=== PATIENT | male | born 1960 | race Caucasian/White ===

== ENCOUNTER 2017-09-08 08:33 | Emergency (ER) | payer SELFPAY ==
[2017-09-08 09:59] LABS: Absolute Lymphocytes (CBC) 1.6 K/uL (0.7-4.9); Absolute Monocytes 0.8 K/uL (0.1-1.3); Absolute Neutrophil 4.7 K/uL (1.8-8.0); Basophils % 0.9 % (0-1.3); Eosinophils % 2.5 % (0-4.4); Hematocrit 44.9 % (39.6-49.0); Lymphocytes % 22.1 % (15.3-44.8); MCH 28.4 pg (27.0-35.0); MCV 84.5 fL (80-100); MPV 8.6 fL (7.6-11.3); Monocytes % 10.4 % (3.3-12.3); RBC Red Blood Cell Count 5.31 M/uL (4.33-5.43)
[2017-09-08 10:00] LABS: Protime INR 1.03
--- NOTE | 2017-09-08 10:14 | RAD REPORT ---
EXAM DESCRIPTION: [facility]09/08/2017 9:50 am CLINICAL HISTORY: Right leg pain and swelling. COMPARISON: 2016 FINDINGS: Right common femoral, superficial femoral, popliteal and right posterior tibial veins are compressible and demonstrate augmentation. Doppler demonstrates good flow. IMPRESSION: No evidence of deep venous thrombosis involving the right lower extremity.
[2017-09-08 10:17] LABS: Potassium 3.5 mmol/L (3.5-5.1)
--- NOTE | 2017-09-08 10:42 | ER ---
Nurse's Notes [facility] Name: Kevin Melgoza Age: 56 yrs Sex: Male : 1960 Arrival Date: 09/08/2017 Time: 08:35 Bed 13 Private MD: None, None Diagnosis: Cellulitis of right lower limb Presentation: 09/08 08:49 Presenting complaint: Patient states: redness and swelling to right lower leg x 2 days aa5 ago. Pt denies SOB, denies leg pain, reports only tenderness to touch. Transition of care: patient was not received from another setting of care. Onset of symptoms was August 2017. Risk Assessment: Do you want to hurt yourself or someone else? Patient reports no desire to harm self or others. Initial Sepsis Screen: Does the patient meet any 2 criteria? No. Patient's initial sepsis screen is negative. Does the patient have a suspected source of infection? No. Patient's initial sepsis screen is negative. Care prior to arrival: None. 08:49 Method Of Arrival: Ambulatory aa5 08:49 Acuity: ALYSON 3 aa5 Historical: - Allergies: 08:51 PENICILLINS; aa5 - Home Meds: 08:51 None [Active]; aa5 - PMHx: 08:51 None; aa5 - PSHx: 08:51 Thumb Surgery; Hernia repair; right leg; aa5 - Immunization history:: Adult Immunizations unknown. - Social history:: Smoking status: Patient uses tobacco products, smokes one-half pack cigarettes per day. - Ebola Screening: : No symptoms or risks identified at this time. Screenin:20 Abuse screen: Denies threats or abuse. Nutritional screening: No deficits noted. aa5 Tuberculosis screening: No symptoms or risk factors identified. Fall Risk None identified. Assessment: 09:20 General: Appears comfortable, Behavior is calm, cooperative. Pain: Denies pain. Neuro: aa5 Level of Consciousness is awake, alert, obeys commands, Oriented to person, place, time, situation. Cardiovascular: Heart tones S1 S2 present Pulses are 3+ in right dorsalis pedis artery Rhythm is regular. Respiratory: Airway is patent Respiratory effort is even, unlabored, Respiratory pattern is regular, symmetrical, Breath sounds are clear bilaterally. Denies shortness of breath. GI: No signs and/or symptoms were reported involving the gastrointestinal system. : No signs and/or symptoms were reported regarding the genitourinary system. EENT: No signs and/or symptoms were reported regarding the EENT system. Derm: Skin is pink, warm \T\ dry. Musculoskeletal: Range of motion: intact in all extremities, Swelling and redness noted to right lower leg. Vital Signs: 08:51 BP 142 / 85; Pulse 76; Resp 16 S; Temp 98.4(TE); Pulse Ox 98% on R/A; Weight 117.93 kg aa5 (R); Height 5 ft. 11 in. (180.34 cm) (R); Pain 0/10; 10:14 BP 140 / 72; Pulse 65; Resp 18; Pulse Ox 100% on R/A; hj 08:51 Body Mass Index 36.26 (117.93 kg, 180.34 cm) aa5 ED Course: 08:35 Patient arrived in ED. sb2 08:36 None, None is Private Physician. sb2 08:50 Triage completed. aa5 08:50 Arm band placed on. aa5 09:13 Cynthia Rendon RN is Primary Nurse. aa5 09:19 Mikey Coleman PA is PHCP. jr8 09:19 Estuardo Sanchez MD is Attending Physician. jr8 09:20 Patient has correct armband on for positive identification. Placed in gown. Bed in low aa5 position. Call light in reach. Side rails up X2. Pulse ox on. NIBP on. 09:30 Patient taken to ultrasound. via wheelchair. aa4 09:38 Missed attempt(s): 20 gauge in right wrist. Bleeding controlled, band aid applied, aa5 catheter tip intact. 09:40 Initial lab(s) drawn, by [facility], sent to lab. Inserted saline lock: 20 gauge in right aa5 forearm, using aseptic technique. Blood collected. 09:50 Ultrasound completed. Patient tolerated well. Patient moved back from ultrasound. aa4 09:50 Extremity Venous Unilateral Ltd In Process Unspecified. EDMS 10:00 Report given to JIMBO Luther. aa5 10:02 No provider procedures requiring assistance completed. aa5 11:16 IV discontinued, intact, bleeding controlled, No redness/swelling at site. hj Administered Medications: No medications were administered Outcome: 10:42 Discharge ordered by . jr8 11:15 Discharged to home ambulatory. hj 11:15 Condition: stable 11:15 Discharge instructions given to patient, Instructed on discharge instructions, follow up and referral plans. medication usage, Demonstrated understanding of instructions, follow-up care, medications, Prescriptions given X 2. 11:16 Patient left the ED. Signatures: Dispatcher [employer] EDMS Jazzy Mclain aa4 Cynthia Rendon RN RN aa5 Mikey Coleman PA PA jr8 Ashkan Borden RN RN Lynn Nava sb2
--- NOTE | 2017-09-08 10:43 | EDPHYS ---
Physician Documentation [facility] Name: Kevin Melgoza Age: 56 yrs Sex: Male : 1960 Arrival Date: 09/08/2017 Time: 08:35 Bed 13 Private MD: None, None ED Physician Estuardo Sanchez HPI: 09/08 09:38 This 56 yrs old Male presents to ER via Ambulatory with complaints of Leg jr8 Swelling. 09:38 The patient presents with pain, swelling, tenderness. The complaints affect the right jr8 calf. Onset: The symptoms/episode began/occurred gradually, 2 day(s) ago. Modifying factors: The symptoms are alleviated by nothing. the symptoms are aggravated by movement. Associated signs and symptoms: The patient has no apparent associated signs or symptoms. Severity of symptoms: At their worst the symptoms were mild, in the emergency department the symptoms are unchanged. The patient has not experienced similar symptoms in the past. The patient has not recently seen a physician. Patient stated that he has had subtle swelling and redness to right leg. Mild pain with palpation. Denies trauma to leg . Historical: - Allergies: 08:51 PENICILLINS; aa5 - Home Meds: 08:51 None [Active]; aa5 - PMHx: 08:51 None; aa5 - PSHx: 08:51 Thumb Surgery; Hernia repair; right leg; aa5 - Immunization history:: Adult Immunizations unknown. - Social history:: Smoking status: Patient uses tobacco products, smokes one-half pack cigarettes per day. - Ebola Screening: : No symptoms or risks identified at this time. ROS: 09:38 Eyes: Negative for injury, pain, redness, and discharge, ENT: Negative for injury, jr8 pain, and discharge, Neck: Negative for injury, pain, and swelling, Cardiovascular: Negative for chest pain, palpitations, and edema, Respiratory: Negative for shortness of breath, cough, wheezing, and pleuritic chest pain, Abdomen/GI: Negative for abdominal pain, nausea, vomiting, diarrhea, and constipation, Back: Negative for injury and pain, Skin: Negative for injury, rash, and discoloration, Neuro: Negative for headache, weakness, numbness, tingling, and seizure. 09:38 MS/extremity: Positive for erythema, pain, swelling, tenderness, of the right calf. Exam: 09:38 Cardiovascular: Regular rate and rhythm with a normal S1 and S2. No gallops, murmurs, jr8 or rubs. Normal PMI, no JVD. No pulse deficits. Respiratory: Lungs have equal breath sounds bilaterally, clear to auscultation and percussion. No rales, rhonchi or wheezes noted. No increased work of breathing, no retractions or nasal flaring. Skin: Warm, dry with normal turgor. Normal color with no rashes, no lesions, and no evidence of cellulitis. Neuro: Awake and alert, GCS 15, oriented to person, place, time, and situation. Cranial nerves II-XII grossly intact. Motor strength 5/5 in all extremities. Sensory grossly intact. Cerebellar exam normal. Normal gait. 09:38 Musculoskeletal/extremity: Extremities: grossly normal except: noted in the right calf: erythema, pain, swelling, tenderness, ROM: intact in all extremities, Circulation is intact in all extremities. Sensation intact. DVT Exam: pain, of the right leg, swelling, of the right leg, tenderness, of the right leg, erythema, of the right leg, Calves: are not equal in size: right is larger than left. Vital Signs: 08:51 BP 142 / 85; Pulse 76; Resp 16 S; Temp 98.4(TE); Pulse Ox 98% on R/A; Weight 117.93 kg aa5 (R); Height 5 ft. 11 in. (180.34 cm) (R); Pain 0/10; 10:14 BP 140 / 72; Pulse 65; Resp 18; Pulse Ox 100% on R/A; hj 08:51 Body Mass Index 36.26 (117.93 kg, 180.34 cm) aa5 MDM: 09:19 Patient medically screened. jr8 10:41 Data reviewed: vital signs, nurses notes, lab test result(s), radiologic studies, jr8 ultrasound, and as a result, I will discharge patient. Data interpreted: Pulse oximetry: on room air is 100 %. Interpretation: normal. Counseling: I had a detailed discussion with the patient and/or guardian regarding: the historical points, exam findings, and any diagnostic results supporting the discharge/admit diagnosis, lab results, radiology results, the need for outpatient follow up, a family practitioner, to return to the emergency department if symptoms worsen or persist or if there are any questions or concerns that arise at home. ED course: Discussed with patient that this is most likely a cellulitis. Will start on antibiotics. Return precautions given. 09/08 09:24 Order name: CBC with Diff; Complete Time: 10:15 8 09/08 09:24 Order name: PT-INR; Complete Time: 10:15 8 09/08 09:24 Order name: Basic Metabolic Panel; Complete Time: 10:25 8 09/08 09:24 Order name: US Extremity Venous Unilateral Ltd; Complete Time: 10:15 09/08 09:24 Order name: IV; Complete Time: 09:52 8 Administered Medications: No medications were administered Disposition: 15:23 Co-signature as Attending Physician, Estuardo Sanchez MD I agree with the assessment and kdr plan of care. Disposition: 09/08/17 10:42 Discharged to Home. Impression: Cellulitis of right lower limb. - Condition is Stable. - Discharge Instructions: Cellulitis. - Prescriptions for Clindamycin HCl 300 mg Oral Capsule - take 1 capsule by ORAL route every 6 hours for 10 days; 40 capsule. Bactrim DS 800- 160 mg Oral Tablet - take 1 tablet by ORAL route every 12 hours for 10 days; 20 tablet. - Medication Reconciliation Form, Thank You Letter, Antibiotic Education, Prescription Opioid Use form. - Follow up: Private Physician; When: 2 - 3 days; Reason: Recheck today's complaints, Continuance of care, Re-evaluation by your physician. - Problem is new. - Symptoms have improved. Signatures: Dispatcher [employer] EDMS Estuardo Sanchez MD MD [facility] Cynthia Rendon RN RN aa5 Mikey Coleman PA PA jr8 Ashkan Borden RN RN hj Corrections: (The following items were deleted from the chart) 11:16 10:42 09/08/2017 10:42 Discharged to Home. Impression: Cellulitis of right lower limb. hj Condition is Stable. Forms are Medication Reconciliation Form, Thank You Letter, Antibiotic Education, Prescription Opioid Use. Follow up: Private Physician; When: 2 - 3 days; Reason: Recheck today's complaints, Continuance of care, Re-evaluation by your physician. Problem is new. Symptoms have improved. jr8
[2017-09-08] MEDS ORDERED: MORPHINE 4 MG/ML SYR ONE (11:11)
== END 2017-09-08 11:16 | disposition home or self-care (01) ==
LOC: ER 08:33
DX: L03.115 Cellulitis of right lower limb (principal); F17.210 Nicotine dependence, cigarettes, uncomplicated; Z88.0 Allergy status to penicillin
CPT/HCPCS: 36415; 80048; 85025; 85610; 93971; 99284

== ENCOUNTER 2024-11-15 11:03 | Emergency (ER) | payer OTHER ==
--- OUTSIDE RECORDS SUMMARY | 2024-11-15 11:10 | XMS REPORT | Continuity of Care Document ---
Author Name Unknown Address [address] [facility] [address] [place] [address] [facility] Address [address] [facility] [address] [place] [address] Care Team Providers Care Inspector [employer] Wafer Name Role Phone None, None Primary Care Physician Unavailab Garry Porter MD Attending Clinician [phone] GARRY CAGLE Attending Clinician Unavailable SHANKAR PASTOR Attending Clinician Unavailable Doctor Unassigned, [place] Attending Clinician U Garry Espinoza MD Attending Clinician [phone] Nurse, [facility] Gu Attending Clinician Unadenita Rodriguez, [facility] Main Attending Clinician UnavailShankar Russell Attending Clinician [phone] JULIA VAZQUEZ Attending Clinician Unavailable Julia Vazquez MD Attending Clinician [phone] Lab, Ang - Db Attending Clinician Unavailable OCTAVIA BAHENA Attending Clinician UnavailOctavia Zhou Attending Clinician [phone] MAISHA MCGREGOR Attending Clinician Unavail able Maisha Andrade Attending Clinician + [phone] CHARLENE BOBBY Attending Clinician Unavailable Charlene Bobby MD Attending Clinician [phone] Brant Mckenzie MD Attending Clinician [phone] Samantha Emmanuel Attending Clinician [phone] Luanne Saucedo DO Attending Clinician DR KURTIS VERGARA Attending Clinician Unavailable GARRY CAGLE Admitting Clinician Unavailable Garry Cagle MD Admitting Clinician [phone] DR KURTIS VERGARA Admitting Clinician Unavailable Payers Payer Name Policy Type Policy Number Effective Date Expirati on Date Source Adriel MARSDOYR [facility] [id number] 1 2022 00:00:00 Problems Condition Name Condition Details Condition Category Status Onset Date Resolution Date Last Treatment Date Treating Clinician Comments Source Urine retention Urine retention Disease Active 0 07-31 00:00: 00 [facility] Indwelling Cook catheter present Indwelling Cook catheter present Disease Active 07-31 00:00: 00 [facility] Preop cardiovasc ular exam Preop cardiovasc ular exam Disease Active 07-20 00:00: 00 [facility] Obesity (BMI 30-39.9) Obesity (BMI 30-39.9) Disease Active 0 07-20 00:00: 00 [facility] Pre-operat brendon clearance Pre-operat brendon clearance Disease Active 0 07-18 00:00: 00 [facility] Urinary tract infection without hematuria, site unspecifie d Urinary tract infection without hematuria, site unspecifie d Disease Active 07-18 00:00: 00 [facility] Wheezing Wheezing Disease Active 06-25 00:00: 00 [facility] Elevated PSA Elevated PSA Disease Active 0 06-25 00:00: 00 [facility] Encounter to discuss test results Encounter to discuss test results Disease Active 0 06-25 00:00: 00 [facility] Mild hyperchole sterolemia Mild hyperchole sterolemia Disease Active 06-25 00:00: 00 [facility] Encounter to discuss test results Encounter to discuss test results Disease Active 0 06-25 00:00: 00 [facility] Benign prostatic hyperplasi a with urinary retention Benign prostatic hyperplasi a with urinary retention Disease Active 417 00:00: 00 [facility] Encounter to establish care Encounter to establish care Disease Active 417 00:00: 00 [facility] Primary osteoarthr itis of right knee Primary osteoarthr itis of right knee Disease Active 417 00:00: 00 [facility] Elevated blood pressure reading in office without diagnosis of hypertensi on Elevated blood pressure reading in office without diagnosis of hypertensi on Disease Active 417 00:00: 00 [facility] Encounter to establish care Encounter to establish care Disease Active 17 00:00: 00 [facility] Acute urinary retention Acute urinary retention Disease Active 4 00:00: 00 [facility] No known active problems No known active problems Disease [facility] Allergies, Adverse Reactions, Alerts Allergy Name Allergy Type Status Severity Reaction(s) Onset Date Inactive Date Treating Clinician Comments Source CEPHALEX IN DRUG INGREDI Active Hives 4-29 00:00: 00 [facility] Cephalex in Drug Allergy Active Hives 0 429 00:00: 00 [facility] Penicill ins Allergy to substanc e Active 3-06 00:00: 00 [facility] Penicill ins Propensi ty to adverse reaction s Active Hives 0 8-30 00:00: 00 [facility] PENICILL INS Drug Class Active Hives 0 8-30 00:00: 00 [facility] Penicill ins Propensi ty to adverse reaction s Active Hives 0 8-30 00:00: 00 [facility] NO KNOWN ALLERGIE S Drug Class Active [facility] Penicill ins DA Active Unknown [facility] Social History Social Habit Start Date Stop Date Quantity Comments Source History of tobacco use Cigarette Smoker [facility] Alcoholic beverage intake 2024-01-10 00:00:00 2024-01-10 00:00:00 Ex-drinker (finding) [facility] Tobacco use and exposure 2023-08-23 00:00:00 2023-08-23 00:00:00 User of smokeless tobacco [facility] Alcohol intake 2023-06-30 00:00:00 2023-06-30 00:00:00 Ex-drinker (finding) [facility] History of Social function 2023-05-31 00:00:00 2023-05-31 00:00:00 [facility] Exposure to SARS-CoV-2 (event) 2022-07-19 00:00:00 2022-07-29 08:13:00 Not sure [facility] Sex Assigned At 1960 00:00:00 1960 00:00:00 [facility] Smoking Status Start Date Stop Date Source Ex-smoker 2023-08-23 00:00:00 2023-08-23 00:00:00 [facility] Tobacco smoking consumption unknown [facility] Medications Ordered Medication Name Filled Medication Name Start Date Stop Date Current Medication? Ordering Clinician Indication Dosage Frequency Signature (SIG) Comments Components Source Nitrofurant oin&Nit. Macrocryst (MACROBID) 100 mg capsule 2023-02 00:00: 00 01-20 05:59 :00 No [id number] 100mg Take 1 capsule by mouth in the morning and 1 capsule in the evening. Do all this for 7 days. [facility] levoFLOXaci n 500 mg tablet 2023-02 00:00: 00 01-17 05:59 :00 No [id number] 500mg Take 1 tablet by mouth every 24 (twenty-fo ur) hours for 7 days. [facility] gentamicin injection 160 mg 09-17 20:45: 00 09-17 20:42 :00 No [id number] 160mg 160 mg, Intramuscu lar, ONCE, 1 dose, On Mon09/18/23 at 1545, AILIN, Reason for Anti-Infec tive: Surgical Prophylaxi s, Surgical Prophylaxi s: Genitourin katy, Duration of therapy: within 24 hours of surgery [facility] ondansetron (ZOFRAN (PF)) injection 4 mg 09-13 20:02: 09 09-14 04:05 :51 No 4mg 4 mg, Slow IV Push, Q4HPRN, 1 dose, Starting on Crystal 09/14/23 at 1502, Until Crystal 09/14/23 at 2305, Routine, Nausea and Vomiting (N/V), DSU Recovery [facility] lactated ringers IV infusion 1,000 mL 09-13 19:15: 00 09-14 04:05 :52 No 1000mL at 75 mL/hr, 1,000 mL, IV Infusion, CONTINUOUS , Starting on Crystal 09/14/23 at 1415, Until Crystal 09/14/23 at 2305, Routine, PACU [facility] HYDROcodone -acetaminop hen (NORCO 5) 5-325 mg tablet 1 tablet 09-13 19:15: 00 09-13 19:54 :00 No 1{tbl} 1 tablet, Oral, ONCE, 1 dose, On Crystal 09/14/23 at 1415, Routine, PACU [facility] HYDROmorphO ne (DILAUDID) injection 0.2 mg 09-13 19:07: 24 09-14 04:05 :51 No .2mg 0.2 mg, Slow IV Push, Q5MIN PRN, 10 doses, Starting on Crystal 09/14/23 at 1407, Until Crystal 09/14/23 at 2305, Routine, Pain (scale 7-10), PACU, Is this medication approved by a Faculty level provider? Yes, administrative appeals tribunal member approving Restricted medication : LANG PENA [facility] FENTanyl PF (SUBLIMAZE (PF)) injection 25 mcg 09-13 19:07: 24 09-14 04:05 :51 No 25ug 25 mcg, Slow IV Push, Q5MIN PRN, 4 doses, Starting on Crystal 09/14/23 at 1407, Until Crystal 09/14/23 at 2305, Routine, Pain (scale 4-6), PACU [facility] meperidine (DEMEROL) injection 12.5 mg 09-13 19:07: 24 09-14 04:05 :51 No 12.5mg 12.5 mg, Slow IV Push, PRN, 1 dose, Starting on Crystal 09/14/23 at 1407, Until Crystal 09/14/23 at 2305, Routine, Shivering, PACU, Enter indication for use: Reduce postoperat brendon shivering, administrative appeals tribunal member approving Restricted medication : PACU RECOVERY [facility] proMETHazin e (PHENERGAN) 12.5 mg in NS 50 mL IV piggyback (CNR) 09-13 19:07: 24 09-14 04:05 :51 No 12.5mg 12.5 mg, IV Piggyback, at 200 mL/hr Administer over 15 Minutes, PRN, 1 dose, Starting on Crystal 09/14/23 at 1407, Until Crystal 09/14/23 at 2305, Routine, Nausea and Vomiting (N/V), PACU [facility] sodium chloride 0.9 % irrigation solution 09-13 15:47: 00 09-13 19:45 :02 No PRN, Starting on Crystal 09/14/23 at 1047, Until Crystal 09/14/23 at 1445, Intra-op [facility] lidocaine (XYLOCAINE) 2 % jelly URO-JET 09-13 15:47: 00 09-13 19:45 :02 No PRN, Starting on Crystal 09/14/23 at 1047, Until Crystal 09/14/23 at 1445, Routine, Intra-op [facility] lactated ringers IV infusion 1,000 mL 09-13 13:00: 00 09-13 13:29 :00 No 1000mL at 42 mL/hr, 1,000 mL, IV Infusion, ONCE, 1 dose, On Crystal 09/14/23 at 0800, Routine, DSU Pre-op [facility] sulfamethox azole-trime thoprim (BACTRIM DS) 800-160 mg per tablet 09-13 00:00: 00 09-21 04:59 :00 No [id number] 1{tbl} Take 1 tablet by mouth in the morning and 1 tablet in the evening. Do all this for 7 days. [facility] clindamycin 300 mg capsule 10 00:00: 00 09-11 04:59 :00 No [id number] 300mg Take 1 capsule by mouth in the morning and 1 capsule at noon and 1 capsule in the evening. Do all this for 5 days. [facility] gadobenate dimeglumine (MULTIHANCE -20 mL) injection 22.78 mL 07-24 18:45: 00 07-24 18:25 :00 No [id number] .2mL/kg 22.78 mL (0.2 mL/kg ?113.9 kg), Intravenou s, ONCE, 1 dose, On Mon07/25/23 at 1345, Routine [facility] tamsulosin 0.4 mg 24 hr capsule 07-24 00:00: 00 Yes [id number] .4mg TAKE 1 CAPSULE BY MOUTH EVERY MORNING [facility] sulfamethox azole-trime thoprim (BACTRIM DS) 800-160 mg per tablet 07-18 00:00: 00 09-13 00:00 :00 No [id number] 1{tbl} Take 1 tablet by mouth in the morning and 1 tablet in the evening. [facility] ondansetron (ZOFRAN) 4 mg tablet 07-18 00:00: 00 07-29 04:59 :00 No [id number] 4mg Take 1 tablet by mouth every 8 (eight) hours as needed for Nausea and Vomiting (N/V) for up to 10 days. [facility] gentamicin injection 160 mg 07-17 20:30: 00 07-18 08:29 :00 [facility] [id number] [facility] mg 07-17 19:45: 00 07-17 19:51 :00 No [id number] 160mg 160 mg, Intramuscu lar, Q24H ABX, 1 dose, First dose on Mon07/18/23 at 1500, AILIN, Reason for Anti-Infec tive: Documented Infection, Documented Infection Site: Urine, Duration of Therapy: Once (ED) [facility] sulfamethox azole-trime thoprim (BACTRIM DS) 800-160 mg per tablet 07-17 00:00: 00 07-18 00:00 :00 No [id number] 1{tbl} Take 1 tablet by mouth in the morning and 1 tablet in the evening. Do all this for 7 days. [facility] gentamicin injection 160 mg 07-03 14:30: 00 07-03 14:12 :00 No [id number] 160mg 160 mg, Intramuscu lar, ONCE, 1 dose, On Mon07/04/23 at 0930, AILIN, Reason for Anti-Infec tive: Surgical Prophylaxi s, Surgical Prophylaxi s: Genitourin katy, Duration of therapy: within 24 hours of surgery [facility] albuterol 90 mcg/actuati on inhaler 06-25 00:00: 00 09-18 00:00 :00 No [id number] 2{puff} Inhale 2 Puffs every 6 (six) hours as needed for Wheezing or Shortness of Breath. [facility] ciprofloxac in HCl 500 mg tablet -27 00:00: 00 06-29 04:59 :00 No [id number] 500mg Take 1 tablet by mouth every 12 (twelve) hours for 5 days. [facility] tamsulosin (FLOMAX) 0.4 mg 24 hr capsule 06-21 00:00: 00 07-24 00:00 :00 No [id number] .4mg Take 1 capsule by mouth in the morning. [facility] tamsulosin (FLOMAX) capsule 0.4 mg 05-26 14:00: 00 Yes .4mg 0.4 mg, Oral, DAILY, First dose on Mon05/27/23 at 0900, Until Discontinu ed, Routine [facility] tamsulosin (FLOMAX) 0.4 mg 24 hr capsule 05-26 00:00: 00 06-21 00:00 :00 No [id number] .4mg Take 1 capsule by mouth in the morning. [facility] meloxicam (Mobic) 15 MG tablet 07-29 00:00: 00 07-29 04:59 :00 No [id number] 15mg QD Take 1 tablet (15 mg total) by mouth 1 (one) time each day. [facility] lidocaine (Xylocaine) 1 % injection 1 mL 05-31 19:00: 00 05-31 19:00 :00 No [id number] 1mL [facility] betamethaso ne acetate-bet amethasone sodium phosphate (Celestone) injection 30 mg 05-31 19:00: 00 05-31 19:00 :00 No [id number] 30mg [facility] albuterol 90 mcg/actuati on inhaler 10-26 00:00: 00 Yes [id number] 2{puff} Inhale 2 Puffs every 4 (four) hours as needed for Wheezing or Shortness of Breath. [facility] bromphenira mine-pseudo ephedrine-D M (BROMFED DM) 2-30-10 mg/5 mL syrup 10-26 00:00: 00 09-18 00:00 :00 No [id number] 5mL Take 5 mL by mouth 4 (four) times daily as needed for Congestion /Allergies . [facility] benzonatate 100 mg capsule 10-26 00:00: 00 09-18 00:00 :00 No [id number] 100mg Take 1 capsule by mouth 3 (three) times daily as needed for Cough. [facility] cephALEXin (KEFLEX) 500 mg capsule 05-22 00:00: 00 Yes 500mg Take 1 capsule by mouth 3 (three) times daily. [facility] acetaminoph en-codeine 300-30 mg tablet 05-22 00:00: 00 09-18 00:00 :00 No 1{tbl} Take 1 tablet by mouth every 4 (four) hours as needed for Pain (scale 4-6) (Cough). [facility] Vital Signs Vital Name Observation Time Observation Value Comments Audra pereira Systolic blood pressure 2024-02-07 20:34:00 132 mm[Hg] [facility] Diastolic blood pressure 2024-02-07 20:34:00 81 mm[Hg] [facility] Heart rate 2024-02-07 20:34:00 71 /min [facility] Body temperature 2024-02-07 20:34:00 36.33 Stacie [facility] Body height 2024-02-07 20:34:00 180.3 cm [facility] Body weight 2024-02-07 20:34:00 112.81 kg [facility] BMI 2024-02-07 20:34:00 34.69 kg/m2 [facility] Oxygen saturation in Arterial blood by Pulse oximetry 2024-02-07 20:34:00 97 /min [facility] Systolic blood pressure 2024-01-10 21:27:00 131 mm[Hg] [facility] Diastolic blood pressure 2024-01-10 21:27:00 89 mm[Hg] [facility] Heart rate 2024-01-10 21:27:00 77 /min [facility] Body temperature 2024-01-10 21:24:00 36.17 Stacie [facility] Respiratory rate 2024-01-10 21:24:00 20 /min [facility] Body weight 2024-01-10 21:24:00 110.678 kg [facility] BMI 2024-01-10 21:24:00 34.03 kg/m2 [facility] Oxygen saturation in Arterial blood by Pulse oximetry 2024-01-10 21:24:00 95 /min [facility] Systolic blood pressure 2023-10-24 18:46:00 146 mm[Hg] [facility] Diastolic blood pressure 2023-10-24 18:46:00 86 mm[Hg] [facility] Heart rate 2023-10-24 18:46:00 82 /min [facility] Body temperature 2023-10-24 18:46:00 35.89 Stacie [facility] Respiratory rate 2023-10-24 18:46:00 18 /min [facility] Body weight 2023-10-24 18:46:00 113.218 kg [facility] BMI 2023-10-24 18:46:00 34.81 kg/m2 [facility] Oxygen saturation in Arterial blood by Pulse oximetry 2023-10-24 18:46:00 96 /min [facility] Systolic blood pressure 2023-09-19 12:53:00 132 mm[Hg] [facility] Diastolic blood pressure 2023-09-19 12:53:00 82 mm[Hg] [facility] Heart rate 2023-09-19 12:53:00 91 /min [facility] Body temperature 2023-09-19 12:53:00 36.39 Stacie [facility] Respiratory rate 2023-09-19 12:53:00 20 /min [facility] Body height 2023-09-19 12:53:00 180.3 cm [facility] Body weight 2023-09-19 12:53:00 111.131 kg [facility] BMI 2023-09-19 12:53:00 34.17 kg/m2 [facility] Oxygen saturation in Arterial blood by Pulse oximetry 2023-09-19 12:53:00 96 /min [facility] Systolic blood pressure 2023-09-18 20:37:00 130 mm[Hg] [facility] Diastolic blood pressure 2023-09-18 20:37:00 80 mm[Hg] [facility] Heart rate 2023-09-18 20:37:00 84 /min [facility] Body temperature 2023-09-18 20:37:00 36.39 Stacie [facility] Respiratory rate 2023-09-18 20:37:00 20 /min [facility] Oxygen saturation in Arterial blood by Pulse oximetry 2023-09-18 20:37:00 98 /min [facility] Body height 2023-09-18 20:06:00 180.3 cm [facility] 2023-09-18 20:06:00 123.56 kg [facility] BMI 2023-09-18 20:06:00 37.99 kg/m2 [facility] Body weight 2023-09-18 14:35:00 123.56 kg [facility] BMI 2023-09-18 14:35:00 37.99 kg/m2 [facility] Systolic blood pressure 2023-09-14 22:10:00 128 mm[Hg] [facility] Diastolic blood pressure 2023-09-14 22:10:00 77 mm[Hg] [facility] Heart rate 2023-09-14 22:10:00 79 /min [facility] Respiratory rate 2023-09-14 22:10:00 20 /min [facility] Oxygen saturation in Arterial blood by Pulse oximetry 2023-09-14 22:10:00 96 /min [facility] Body temperature 2023-09-14 19:07:00 36.89 Stacie [facility] Body weight 2023-08-23 22:00:00 117.935 kg [facility] BMI 2023-08-23 22:00:00 36.26 kg/m2 [facility] Heart rate 2023-09-14 13:12:00 74 /min [facility] Body temperature 2023-09-14 13:12:00 36.78 Stacie [facility] Respiratory rate 2023-09-14 13:12:00 21 /min [facility] Oxygen saturation in Arterial blood by Pulse oximetry 2023-09-14 13:12:00 94 /min [facility] Body weight 2023-08-23 22:00:00 117.935 kg [facility] BMI 2023-08-23 22:00:00 36.26 kg/m2 [facility] Body weight 2023-08-04 15:45:00 113.762 kg [facility] BMI 2023-08-04 15:45:00 34.98 kg/m2 [facility] Body weight 2023-07-25 15:42:00 113.853 kg [facility] BMI 2023-07-25 15:42:00 35.01 kg/m2 [facility] Systolic blood pressure 2023-07-21 18:10:00 128 mm[Hg] [facility] Diastolic blood pressure 2023-07-21 18:10:00 81 mm[Hg] [facility] Heart rate 2023-07-21 18:10:00 79 /min [facility] Respiratory rate 2023-07-21 18:10:00 16 /min [facility] Body weight 2023-07-21 18:10:00 113.853 kg [facility] BMI 2023-07-21 18:10:00 35.01 kg/m2 [facility] Oxygen saturation in Arterial blood by Pulse oximetry 2023-07-21 18:10:00 99 /min [facility] Systolic blood pressure 2023-07-19 19:29:00 118 mm[Hg] [facility] Diastolic blood pressure 2023-07-19 19:29:00 81 mm[Hg] [facility] Heart rate 2023-07-19 19:29:00 75 /min [facility] Body temperature 2023-07-19 19:29:00 37.11 Stacie [facility] Respiratory rate 2023-07-19 19:29:00 18 /min [facility] Body height 2023-07-19 19:29:00 180.3 cm [facility] Body weight 2023-07-19 19:29:00 112.9 kg [facility] BMI 2023-07-19 19:29:00 34.71 kg/m2 [facility] Oxygen saturation in Arterial blood by Pulse oximetry 2023-07-19 19:29:00 97 /min [facility] Systolic blood pressure 2023-07-18 18:51:00 118 mm[Hg] [facility] Diastolic blood pressure 2023-07-18 18:51:00 81 mm[Hg] [facility] Heart rate 2023-07-18 18:51:00 89 /min [facility] Res[facility] 2023-07-18 18:51:00 18 /min [facility] Body height 2023-07-18 18:51:00 180.3 cm [facility] Body weight 2023-07-18 18:51:00 113.853 kg [facility] BMI 2023-07-18 18:51:00 35.01 kg/m2 [facility] Oxygen saturation in Arterial blood by Pulse oximetry 2023-07-18 18:51:00 98 /min [facility] Body weight 2023-07-14 15:54:00 117.482 kg [facility] BMI 2023-07-14 15:54:00 36.12 kg/m2 [facility] Systolic blood pressure 2023-07-04 13:18:00 146 mm[Hg] [facility] Diastolic blood pressure 2023-07-04 13:18:00 93 mm[Hg] [facility] Heart rate 2023-07-04 13:18:00 77 /min [facility] Oxygen saturation in Arterial blood by Pulse oximetry 2023-07-04 13:18:00 94 /min [facility] Body temperature 2023-07-04 13:17:00 36.56 Stacie [facility] Respiratory rate 2023-07-04 13:17:00 20 /min [facility] Body height 2023-07-04 13:17:00 180.3 cm [facility] Body weight 2023-07-04 13:17:00 117.482 kg [facility] BMI 2023-07-04 13:17:00 36.12 kg/m2 [facility] Body weight 2023-06-30 20:49:00 116.121 kg [facility] BMI 2023-06-30 20:49:00 35.70 kg/m2 [facility] Systolic blood pressure 2023-06-26 18:34:00 133 mm[Hg] [facility] Diastolic blood pressure 2023-06-26 18:34:00 87 mm[Hg] [facility] Heart rate 2023-06-26 18:34:00 93 /min [facility] Body temperature 2023-06-26 18:34:00 36.83 Stacie [facility] Respiratory rate 2023-06-26 18:34:00 18 /min [facility] Body height 2023-06-26 18:34:00 180.3 cm [facility] Body weight 2023-06-26 18:34:00 116.166 kg [facility] BMI 2023-06-26 18:34:00 35.72 kg/m2 [facility] Oxygen saturation in Arterial blood by Pulse oximetry 2023-06-26 18:34:00 98 /min [facility] Body weight 2023-06-22 14:14:00 118.389 kg [facility] BMI 2023-06-22 14:14:00 36.40 kg/m2 [facility] Systolic blood pressure 2023-06-14 18:14:00 137 mm[Hg] [facility] Diastolic blood pressure 2023-06-14 18:14:00 83 mm[Hg] [facility] Heart rate 2023-06-14 18:14:00 89 /min [facility] Body temperature 2023-06-14 18:14:00 36.78 Stacie [facility] Respiratory rate 2023-06-14 18:14:00 18 /min [facility] Body height 2023-06-14 18:14:00 180.3 cm [facility] Body weight 2023-06-14 18:14:00 118.797 kg [facility] BMI 2023-06-14 18:14:00 36.53 kg/m2 [facility] Oxygen saturation in Arterial blood by Pulse oximetry 2023-06-14 18:14:00 96 /min [facility] Systolic blood pressure 2023-06-07 13:44:00 138 mm[Hg] [facility] Diastolic blood pressure 2023-06-07 13:44:00 94 mm[Hg] [facility] Heart rate 2023-06-07 13:44:00 90 /min [facility] Respiratory rate 2023-06-07 13:44:00 18 /min [facility] Body height 2023-06-07 13:44:00 180.3 cm [facility] Body weight 2023-06-07 13:44:00 118.842 kg [facility] BMI 2023-06-07 13:44:00 36.54 kg/m2 [facility] Oxygen saturation in Arterial blood by Pulse oximetry 2023-06-07 13:44:00 91 /min [facility] Body weight 2023-06-06 14:31:00 118.842 kg [facility] BMI 2023-06-06 14:31:00 36.54 kg/m2 [facility] Systolic blood pressure 2023-05-31 19:11:00 126 mm[Hg] [facility] Diastolic blood pressure 2023-05-31 19:11:00 84 mm[Hg] [facility] Heart rate 2023-05-31 19:11:00 110 /min [facility] Body temperature 2023-05-31 19:11:00 36.67 Stacie [facility] Respiratory rate 2023-05-31 19:11:00 18 /min [facility] Body height 2023-05-31 19:11:00 180.3 cm [facility] Body weight 2023-05-31 19:11:00 118.933 kg [facility] BMI 2023-05-31 19:11:00 36.57 kg/m2 [facility] Oxygen saturation in Arterial blood by Pulse oximetry 2023-05-31 19:11:00 96 /min [facility] Systolic blood pressure 2023-05-27 12:47:00 174 mm[Hg] [facility] Diastolic blood pressure 2023-05-27 12:47:00 105 mm[Hg] [facility] Heart rate 2023-05-27 12:45:00 83 /min [facility] Body temperature 2023-05-27 12:45:00 36.5 Stacie [facility] Respiratory rate 2023-05-27 12:45:00 18 /min [facility] Body height 2023-05-27 12:45:00 180.3 cm [facility] Body weight 2023-05-27 12:45:00 117.935 kg [facility] BMI 2023-05-27 12:45:00 36.26 kg/m2 [facility] Oxygen saturation in Arterial blood by Pulse oximetry 2023-05-27 12:45:00 98 /min [facility] Body height 2022-05-02 17:42:00 180.3 cm [facility] Body weight 2022-05-02 17:42:00 122.471 [facility] BMI 2022-05-02 17:42:00 37.66 kg/m2 [facility] Systolic blood pressure 2020-10-26 14:25:00 128 mm[Hg] [facility] Diastolic blood pressure 2020-10-26 14:25:00 90 mm[Hg] [facility] Heart rate 2020-10-26 14:25:00 61 /min [facility] Body temperature 2020-10-26 14:25:00 36.89 Stacie [facility] Respiratory rate 2020-10-26 14:25:00 20 /min [facility] Oxygen saturation in Arterial blood by Pulse oximetry 2020-10-26 14:25:00 88 /min [facility] Body weight 2020-10-26 14:22:00 117.935 kg [facility] BMI 2020-10-26 14:22:00 37.31 kg/m2 [facility] Weight 2019-01-08 09:08:00 126.28 KG Height 2019-01-08 09:08:00 180.34 CM Procedures Procedure Date / Time Performed Performing Clinician Source POCT URINALYSIS AUTO 2024-02-07 20:46:00 Pallavi Cagle [facility] US SCROTUM AND CONTENTS 2024-01-15 14:05:37 [facility] RES,US,NON-IMAGING 2024-01-10 21:35:00 Steph [facility] POCT URINALYSIS AUTO 2024-01-10 21:31:00 Pallavi Cagle [facility] BYRON,POST-VOID RES,US,NON-IMAGING 2023-10-24 18:53:00 [facility] 2023-09-14 17:27:00 Murray Cagle [facility] ACUTE CARE VENOUS 2023-09-14 17:27:00 Murray Cagle [facility] [id number] - [place] LASER ENUCLEATION PROSTATE W/MORCELLATION 2023-09-14 15:11:00 Steph [facility] BASIC METABOLIC PANEL (NA, K, CL, CO2, GLUCOSE, BUN, CREATININE, CA) 2023-09-14 13:24:00 [facility] 2023-09-14 13:24:00 Neno Thornton [facility] HB ABO GROUPING 2023-09-14 13:24:00 Neno Thornton [facility] BASIC METABOLIC PANEL (NA, K, CL, CO2, GLUCOSE, BUN, CREATININE, CA) 2023-09-14 13:24:00 [facility] DIFF 2023-09-14 13:24:00 Neno Thornton [facility] HB ABO GROUPING 2023-09-14 13:24:00 Neno Thornton [facility] BYRON,POST-VOID RES,US,NON-IMAGING 2023-06-07 13:47:00 Octavia Bahena [facility] URINALYSIS 2023-05-27 13:09:00 Charlene Bobby [facility] [place] ARTHROCENTESIS ASP/INJ MAJOR JOINT/BURSA W/OUT US 2022-05-31 19:00:00 Samantha Plummer [facility] COVID-19 (ID NOW RAPID TESTING) 2020-10-26 14:29:00 Luanne Saucedo [facility] NOTICE OF PRIVACY PRACTICES 2020-10-26 14:03:37 Doctor Unassigned, [place] [facility] CONSENT/REFUSAL FOR DIAGNOSIS AND TREATMENT 2020-10-26 14:00:26 Doctor Unassigned, [place] [facility] EXCISION RT UPPER EYELID EXTER DIAG 2019-01-08 00:00:00 [facility] Encounters Start Date/Time End Date/Time Encounter Type Admission Type Attending [facility] Care Facility Care Department Encounter ID Source 2022-08-27 03:53:[address] [facility] [id number] [facility] 2022-08-02 03:56:[address] [facility] [id number] [facility] 2022-07-19 08:00:[address] [facility] [id number] [facility] 2022-07-18 16:22:[address] [facility] [id number] [facility] 2022-07-04 06:21:[address] [facility] [id number] [facility] 2022-06-29 04:06:[address] [facility] [id number] [facility] 2022-06-14 08:37:[address] [facility] [id number] [facility] 2022-06-02 04:12:[address] [facility] [id number] [facility] 2022-05-31 13:35:[address] [facility] [id number] [facility] 2022-05-03 04:19:[address] [facility] [id number] [facility] 2022-05-02 11:00:[address] [facility] [id number] [facility] 2022-04-28 09:26:[address] [facility] [id number] [facility] 2024-01-13 00:00:00 2024-02-17 18:19:12 Patient Secure Garry Cagle [facility] 1.2.840.114 350.1.13.10 4.2.7.2.686 [id number] [facility] 2024-02-07 15:00:00 2024-02-07 15:15:00 Office Visit Steph [facility] 1.2.840.114 350.1.13.10 4.2.7.2.686 [id number] [facility] 2024-02-07 15:00:00 2024-02-07 15:00:00 Outpatient R VICTOR MANUELWKADWOAdriel [facility] [id number] [facility] 2024-01-15 07:27:15 2024-01-15 23:59:00 Outpatient R VICTOR MANUELKWADWOAdriel [facility] [id number] [facility] 2024-01-15 07:27:15 2024-01-15 23:59:00 Hospital Encounter Garry Cagle [facility] COUNT INCLUDES [facility] 1.2.840.114 350.1.13.10 4.2.7.2.686 [id number] [facility] 2024-01-13 00:00:00 2024-01-13 11:15:00 Telephone Garry Cagle [facility] 1.2.840.114 350.1.13.10 4.2.7.2.686 [id number] [facility] 2024-01-10 15:15:00 2024-01-10 16:04:12 [facility] [id number] [facility] 2024-01-10 15:15:00 2024-01-10 16:04:12 [facility] 1.2.840.114 350.1.13.10 4.2.7.2.686 [id number] [facility] 2024-01-10 00:00:00 2024-01-10 08:30:58 Telephone Steph [facility] PROFESS[facility] 1.2.840.114 350.1.13.10 4.2.7.2.686 [id number] [facility] 2023-12-26 10:30:00 2023-12-26 10:30:00 Outpatient R SHANKAR PASTOR [facility] [id number] [facility] 2023-10-24 13:45:00 2023-10-24 17:05:07 Outpatient R STEPH [facility] [id number] [facility] 2023-10-24 13:45:00 2023-10-24 17:05:07 Office Visit Steph [facility] 1.2.840.114 350.1.13.10 4.2.7.2.686 [id number] [facility] 2023-10-23 11:00:00 2023-10-23 11:00:00 Outpatient R SHANKAR PASTOR [facility] [id number] [facility] 2023-09-28 00:00:00 2023-10-17 11:13:31 [facility] 1.2.840.114 350.1.13.10 4.2.7.2.686 [id number] [facility] 2023-08-25 00:00:00 2023-09-30 18:24:51 Patient Secure Msg Doctor Unassigned, [place] [facility] 1.2.840.114 350.1.13.10 4.2.7.2.686 [id number] [facility] 2023-09-19 08:00:00 2023-09-19 08:57:30 Outpatient R STEPH [facility] [id number] [facility] 2023-09-19 08:00:00 2023-09-19 08:57:30 Office Visit Steph [facility] 1.2.840.114 350.1.13.10 4.2.7.2.686 [id number] [facility] 2023-09-18 15:00:00 2023-09-18 16:36:26 Outpatient R STEPH [facility] [id number] [facility] 2023-09-18 15:00:00 2023-09-18 16:36:26 Nurse Visit Nurse, [facility] BU[facility] 1.2.840.114 350.1.13.10 4.2.7.2.686 [id number] [facility] 2023-09-18 00:00:00 2023-09-18 15:03:13 Telephone [facility] 1.2.840.114 350.1.13.10 4.2.7.2.686 [id number] [facility] 2023-09-18 09:00:00 2023-09-18 10:47:17 Nurse Visit Nurse, [facility] BU[facility] 1.2.840.114 350.1.13.10 4.2.7.2.686 [id number] [facility] 2023-09-14 07:53:00 2023-09-14 17:22:00 [facility] [id number] [facility] 2023-09-14 07:53:00 2023-09-14 17:22:00 [facility] 1.2.840.114 350.1.13.10 4.2.7.2.686 [id number] [facility] 2023-09-14 00:00:00 2023-09-14 17:00:28 Telephone [facility] 1.20.114 350.1.13.10 4.2.7.2.686 [id number] [facility] 2023-09-14 00:00:00 2023-09-14 14:50:50 Telephone [facility] 1.2.840.114 350.1.13.10 4.2.7.2.686 [id number] [facility] 2023-09-14 10:22:00 2023-09-14 13:11:00 Surgery [facility] 1..114 350.1.13.10 4.2.7.2.686 [id number] [facility] 2023-09-11 09:30:00 2023-09-11 09:45:00 Stone Grader Visit 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, Adc Lab Main [facility] PROFESSIO NAL BUILDING 1..114 350.1.13.10 4.2.7.2.686 [id number] [facility] 2023-09-11 09:30:00 2023-09-11 09:30:00 Outpatient R STEPH [facility] [id number] [facility] 2023-09-06 00:00:00 2023-09-06 14:45:49 Telephone [facility] 1.20.114 350.1.13.10 4.2.7.2.686 [id number] [facility] 2023-09-06 00:00:00 2023-09-06 11:19:17 Patient Secure Msg Doctor Unassigned, [place] [facility] 1..114 350.1.13.10 4.2.7.2.686 [id number] [facility] 2023-09-05 10:45:00 2023-09-05 11:00:00 Stone Grader Visit Pob, [facility] 1.2.840.114 350.1.13.10 4.2.7.2.686 [id number] [facility] 2023-09-05 10:45:00 2023-09-05 10:45:00 Outpatient R [facility] [id number] [facility] 2023-08-08 10:00:00 2023-08-08 11:00:00 Nurse Visit Nurse, [facility] BU[facility] 1..840.114 350.1.13.10 4.2.7.2.686 [id number] [facility] 2023-08-08 10:00:00 2023-08-08 10:00:00 Outpatient R [facility] [id number] [facility] 2023-08-04 10:00:00 2023-08-04 11:00:00 Nurse Visit Nurse, [facility] 1.2.840.114 350.1.13.10 4.2.7.2.686 [id number] [facility] 2023-08-04 10:00:00 2023-08-04 10:00:00 Outpatient R [facility] [id number] [facility] 2023-08-01 00:00:00 2023-08-01 13:04:27 [facility]phone [facility] 1..840.114 350.1.13.10 4.2.7.2.686 [id number] [facility] 2023-06-24 00:00:00 2023-07-29 18:09:34 Patient Secure Msg [facility] 1.2.840.114 350.1.13.10 4.2.7.2.686 [id number] [facility] 2023-07-25 11:37:42 2023-07-25 23:59:00 [facility] 1.2.840.114 350.1.13.10 4.2.7.2.686 [id number] [facility] 2023-07-25 10:00:00 2023-07-25 10:00:00 Nurse Visit Nurse, [facility] Shankar Pastor [facility] 1.840.114 350.1.13.10 4.2.7.2.686 [id number] [facility] 2023-07-25 10:00:00 2023-07-25 09:58:44 Outpatient R SHANKAR PASTOR [facility] [id number] [facility] 2023-07-21 13:20:00 2023-07-21 13:21:43 [facility] [id number] 2023-07-21 13:20:00 2023-07-21 13:21:43 [facility] 1.840.114 350.1.13.10 4.2.7.2.686 [id number] [facility] 2023-07-21 00:00:00 2023-07-21 08:07:53 Telephone Shankar Pastor [facility] NA[facility]EM?[facility] 1.2840.114 350.1.13.10 4.2.7.2.686 [id number] [facility] 2023-07-19 14:47:12 2023-07-19 23:59:00 Outpatient R SHANKAR PASTOR [facility] [id number] [facility] 2023-07-19 15:00:00 2023-07-19 15:15:00 Stone Grader Visit Lab, Ang - Db Dawit [facility] NAEEM?[facility] 1.2.840.114 350.1.13.10 4.2.7.2.686 [id number] [facility] 2023-07-19 14:47:12 2023-07-19 14:47:12 Hospital Encounter Shankar Pastor [facility] NA[facility]EM?[facility] 1.2.840.114 350.1.13.10 4.2.7.2.686 [id number] [facility] 2023-07-19 14:30:00 2023-07-19 14:45:42 Office Visit Dawit Shankar [facility] NAEEM?[facility] 1.2.840.114 350.1.13.10 4.2.7.2.686 [id number] [facility] 2023-07-18 00:00:00 2023-07-18 15:39:56 Telephone Meg [facility] 1.2.840.114 350.1.13.10 4.2.7.2.686 [id number] [facility] 2023-07-13 00:00:00 2023-07-18 15:37:35 [facility] 1.2.840.114 350.1.13.10 4.2.7.2.686 [id number] [facility] 2023-07-18 13:45:00 2023-07-18 14:59:06 Outpatient R STEPH [facility] [id number] [facility] 2023-07-18 13:45:00 2023-07-18 14:59:06 Office Visit Garry Cagle [facility] 1.2.114 350.1.13.10 4.2.7.2.686 [id number] [facility] 2023-07-17 00:00:00 2023-07-17 09:18:24 Telephone Steph [facility] PROFESSIO NAL BUILDING 1.284.114 350.1.13.10 4.2.7.2.686 [id number] [facility] 2023-07-14 10:00:00 2023-07-14 10:41:24 Outpatient [facility] [id number] [facility] 2023-07-14 10:00:00 2023-07-14 10:41:24 Nurse Visit Nurse, [facility] 1.840.114 350.1.13.10 4.2.7.2.686 [id number] [facility] 2023-07-08 10:34:50 2023-07-08 23:59:00 Outpatient R STEPH [facility] [id number] [facility] 2023-07-08 10:34:50 2023-07-08 23:59:00 Hospital Encounter Steph [facility] 1.284.114 350.1.13.10 4.2.7.2.686 [id number] [facility] 2023-07-04 13:30:00 2023-07-04 13:45:00 Stone Grader Visit Pob, Adc Lab Main Steph [facility] PROFESSIO NAL BUILDING 1.2.840.114 350.1.13.10 4.2.7.2.686 [id number] [facility] 2023-07-04 08:30:00 2023-07-04 11:44:49 Outpatient R VICTOR MANUELTAHIR [facility] [id number] [facility] 2023-07-04 08:30:00 2023-07-04 11:44:49 [facility] 1.0.114 350.1.13.10 4.2.7.2.686 [id number] [facility] 2023-06-30 15:00:00 2023-06-30 16:00:00 Nurse Visit Nurse, [facility] 1.840.114 350.1.13.10 4.2.7.2.686 [id number] [facility] 2023-06-30 15:00:00 2023-06-30 15:00:00 [facility] [id number] [facility] 2023-06-26 13:30:00 2023-06-26 14:05:31 Outpatient R SHANKAR PASTOR [facility] [id number] [facility] 2023-06-26 13:30:00 2023-06-26 14:05:31 Office Visit Shankar Pastor [facility] NAEEM?[facility] 1.2840.114 350.1.13.10 4.2.7.2.686 [id number] [facility] 2023-06-24 00:00:00 2023-06-24 00:00:00 Telephone Steph [facility] 1.0.114 350.1.13.10 4.2.7.2.686 [id number] [facility] 2023-06-22 09:00:00 2023-06-22 10:47:01 Outpatient [facility] [id number] [facility] 2023-06-22 09:00:00 2023-06-22 10:00:00 Nurse Visit Nurse, [facility] Steph [facility] NAL BUILDING 1..840.114 350.1.13.10 4.2.7.2.686 [id number] [facility] 2023-06-15 00:00:00 2023-06-15 00:00:00 Telephone Steph [facility] 1..840.114 350.1.13.10 4.2.7.2.686 [id number] [facility] 2023-06-14 13:00:00 2023-06-14 13:35:08 Outpatient R DAWIT SHANKAR [facility] [id number] [facility] 2023-06-14 13:00:00 2023-06-14 13:35:08 Office Visit Shankar Pastor [facility] 1.2.840.114 350.1.13.10 4.2.7.2.686 [id number] [facility] 2023-06-07 09:00:00 2023-06-07 09:13:28 Outpatient [facility] [id number] [facility] 2023-06-07 09:00:00 2023-06-07 09:13:28 [facility] 1.2.840.114 350.1.13.10 4.2.7.2.686 [id number] [facility] 2023-06-06 09:00:00 2023-06-06 10:00:00 Nurse Visit Nurse, [facility] 1.20.114 350.1.13.10 4.2.7.2.686 [id number] [facility] 2023-06-06 09:00:00 2023-06-06 09:00:00 Outpatient R BAHENAPINKYOCTAVIA [facility] [id number] [facility] 2023-05-31 14:30:00 2023-05-31 15:48:48 Outpatient R MAISHA MCGREGOR [facility] [id number] [facility] 2023-05-31 14:30:00 2023-05-31 15:48:48 Office Visit Maisha Mcgregor [facility] 1..114 350.1.13.10 4.2.7.2.686 [id number] [facility] 2023-05-27 07:48:00 2023-05-27 09:09:00 Emergency X CHARLENE BOBBY [facility] ERT [id number] [facility] 2023-05-27 07:48:00 2023-05-27 09:09:00 Emergency Charlene Bobby [facility] 1.0.114 350.1.13.10 4.2.7.2.686 [id number] [facility] 2022-08-26 09:00:00 2022-08-26 09:00:00 Office Visit Brant Mckenzie [facility] 1.0.114 350.1.13.58 9.2.7.2.686 [id number] [facility] 2022-07-29 09:00:00 2022-07-29 09:00:00 Office Visit Samantha Plummer [facility] 1.2840.114 350.1.13.58 9.2.7.2.686 [id number] [facility] 2022-06-28 13:30:00 2022-06-28 14:56:00 Office Visit BRANT MCKENZIE [facility] 1.2.840.114 350.1.13.58 9.2.7.2.686 [id number] [facility] 2022-05-31 14:00:00 2022-05-31 14:00:00 Procedure Visit Samantha Plummer [facility] 1.2.840.114 350.1.13.58 9.2.7.2.686 [id number] [facility] 2022-05-02 12:45:00 2022-05-02 12:56:20 Office Visit Samantha Plummer [facility] 1.2.840.114 350.1.13.58 9.2.7.2.686 [id number] [facility] 2022-05-02 12:45:00 2022-05-02 12:56:[address] [facility] [id number] [facility] 2020-10-26 09:30:00 2020-10-26 11:41:00 Emergency Luanne Saucedo [facility] 1.2.840.114 350.1.13.10 4.2.7.2.686 [id number] [facility] 2020-10-26 09:00:00 2020-10-26 09:00:00 Emergency X [facility] ERT [id number] [facility] 2019-01-08 08:40:00 2019-01-08 13:25:00 Outpatient KURTIS POON [id number] [facility] Results Test Description Test Time Test Comments Results Result Co mments Source [facility] SCROTUM AND [id number] 18:27:19 EXAM: US SCROTUM AND CONTENTS HISTORY: 63 years-old Male; Provided indication: left EO . TECHNIQUE:Ultrasound imaging with color Doppler of the scrotum wasperformed. Keg Inspector images were obtained for the record. COMPARISON: CT pelvis dated 07/08/2023 FINDINGS: Right Testicle: The right testicle is normal in size, shape, andechotexture. The right testicle measures 4.3 x 2.4 x 3.7 cm, with a volumeof 20.3 mL. The blood flow is normal. No focal lesion is seen. Smallhydrocele. Left Testicle: The left testicle is normal in size, shape, and echotexture.The left testicle measures 2.9 x 8 3 x 3cm, with a volume of 18.2 mL. Theblood flow is normal. No focal lesion is seen. Small hydrocele. Right Epididymis: The right epididymal head is normal in size anddemonstrates normal blood flow. Left Epididymis: The left epididymal head is normal in size anddemonstrates normal blood flow. Multiple tubular and serpentine anechoic structures are visualized in theupper pole of the testes and epididymal head. Increased color flow isdemonstrated with Valsalva..[facility] [id number] 21:37:00* Test Item Value Reference Range Interpretation Comme nts POCT U SP GRAV (test code = 3255) 1.005-1.025 POCT PH U (test code = 3254) 6 mg/dl 5-8 POCT U LEUK EST (test code = 3263) small Negative - Negative POCT U NIT (test code = 3262) positive Negative - Negati ve POCT U PROT (test code = 3259) 100 Negative - Negat brendon POCT U GLU (test code = 3256) neg Negative - Negati ve POCT U KETONE (test code = 3258) trace Negative - Negative POCT U UROBILI (test code = 3260) 0.2 mg/dl 0.2-1 POCT U BILI (test code = 3261) neg Negative - Negat brendon POCT U BLD (test code = 3257) large Negative - Negati ve POCT U COLOR (test code = 3266) yellow POCT U APPEAR (test code = 3267) cloudy [facility],US,[id number] 21:35:00* Test Item Value Reference Range Interpretation Comme nts PVR (URINE VOLUME) (test code = 5193) 0 ml 0-100 [facility],US,[id number] 18:53:00* Test Item Value Reference Range Interpretation Comme nts PVR (URINE VOLUME) (test code = 5193) 0 ml 0-100 [facility] [id number] 20:54:57* Test Item Value Reference Range Interpretation Comme nts PH (test code = [id number]) 7.36 7.32-7.42 PCO2 ANN (test code = 2945879726) 45 41-51 PO2 ANN (test code = 4853587945) 82 25-40 HH AC VBE(BEAKER) (test code = 9361956207) 0.0 -3.0-3.0 HCO3 ANN (test code = 0660938629) 25 24-28 %O2HB (test code = 4469199088) 96.0 % 95.0-98.0 NA (test code = 1061203081) 138 mmol/L 135-145 K+ (test code = 7097282255) 4.4 mmol/L 3.5-5.0 AC CA IONZ (test code = 0626763009) 4.70 mg/dL 4.50-5.30 GLUCOSE (test code = 1777714623) 125 mg/dL 70-110 H AC Hematocrit (test code = 9918200374) 41 40-54 THB (test code = 1772529864) 13.9 g/dL 13.5-18.0 AC TCO2 ANN (test code = 6985772879) 27 mmol/L See_Comment [Automated NAVXa ge] The system which generated this result transmitted reference range: 24-29 mmol/L. The reference range was not used to interpret this result as normal/abnormal. Lab Interpretation (test code = 74870-2) Abnormal [facility] Iivchl6705-16-02 20:54:57* Test Item Value Reference Range Interpretation Comme nts PH (test code = 9861702479) 7.36 7.32-7.42 PCO2 ANN (test code = 6830244786) 45 41-51 PO2 ANN (test code = 4906363123) 82 25-40 HH AC VBE(BEAKER) (test code = 5209581154) 0.0 -3.0-3.0 HCO3 ANN (test code = 5498700561) 25 24-28 %O2HB (test code = 2843218322) 96.0 % 95.0-98.0 NA (test code = 6524130617) 138 mmol/L 135-145 K+ (test code = 2309488950) 4.4 mmol/L 3.5-5.0 AC CA IONZ (test code = 7644278970) 4.70 mg/dL 4.50-5.30 GLUCOSE (test code = 5858726519) 125 mg/dL 70-110 H AC Hematocrit (test code = 9464569926) 41 40-54 THB (test code = 0905942980) 13.9 g/dL 13.5-18.0 AC TCO2 ANN (test code = 0840782259) 27 mmol/L See_Comment [Automated NAVXa ge] The system which generated this result transmitted reference range: 24-29 mmol/L. The reference range was not used to interpret this result as normal/abnormal. Lab Interpretation (test code = 82763-3) Abnormal [facility] with Atxjiomrmgnf8597-06-08 14:15:54* Test Item Value Reference Range Interpretation Comme nts WBC (test code = 6690-2) 8.57 4.20-10.70 RBC (test code = 789-8) 5.51 4.26-5.52 HGB (test code = 718-7) 15.5 g/dL 12.2-16.4 HCT (test code = 4544-3) 48.7 % 38.4-49.3 MCV (test code = 787-2) 88.4 fL 81.7-95.6 MCH (test code = 785-6) 28.1 pg 26.1-32.7 MCHC (test code = 786-4) 31.8 g/dL 31.2-35.0 RDW-SD (test code = 40195-0) 47.5 fL 38.5-51.6 RDW-CV (test code = 788-0) 14.6 % 12.1-15.4 PLT (test code = 777-3) 297 150-328 MPV (test code = 32662-1) 10.8 fL 9.8-13.0 NRBC/100 WBC (test code = 1983659195) 0.0 0.0-10.0 NRBC x10^3 (test code = 8010567557) See_Comment [Automated me ssage] The system which generated this result transmitted reference range: 10*3/?L. The reference range was not used to interpret this result as normal/abnormal. GRAN MAT (NEUT) % (test code = 770-8) 66.5 % IMM GRAN % (test code = 4401642461) 0.50 % LYMPH % (test code = 736-9) 20.0 % MONO % (test code = 5905-5) 7.9 % EOS % (test code = 713-8) 4.0 % BASO % (test code = 706-2) 1.1 % GRAN MAT x10^3(ANC) (test code = 5877177317) 5.71 10*3/uL 1.99-6.95 IMM GRAN x10^3 (test code = 5495134411) 0.04 10*3/uL 0.00-0.06 LYMPH x10^3 (test code = 731-0) 1.71 10*3/uL 1.09-3.23 MONO x10^3 (test code = 742-7) 0.68 10*3/uL 0.36-1.02 EOS x10^3 (test code = 711-2) 0.34 10*3/uL 0.06-0.53 BASO x10^3 (test code = 704-7) 0.09 10*3/uL 0.01-0.09 [facility] with Grwuozzuxiit9612-76-06 14:15:54* Test Item Value Reference Range Interpretation Comme nts WBC (test code = 6690-2) 8.57 4.20-10.70 RBC (test code = 789-8) 5.51 4.26-5.52 HGB (test code = 718-7) 15.5 g/dL 12.2-16.4 HCT (test code = 4544-3) 48.7 % 38.4-49.3 MCV (test code = 787-2) 88.4 fL 81.7-95.6 MCH (test code = 785-6) 28.1 pg 26.1-32.7 MCHC (test code = 786-4) 31.8 g/dL 31.2-35.0 RDW-SD (test code = 44270-3) 47.5 fL 38.5-51.6 RDW-CV (test code = 788-0) 14.6 % 12.1-15.4 PLT (test code = 777-3) 297 150-328 MPV (test code = 87668-1) 10.8 fL 9.8-13.0 NRBC/100 WBC (test code = 0761948657) 0.0 0.0-10.0 NRBC x10^3 (test code = 6229838415) See_Comment [Automated me ssage] The system which generated this result transmitted reference range: 10*3/?L. The reference range was not used to interpret this result as normal/abnormal. GRAN MAT (NEUT) % (test code = 770-8) 66.5 % IMM GRAN % (test code = 6107103203) 0.50 % LYMPH % (test code = 736-9) 20.0 % MONO % (test code = 5905-5) 7.9 % EOS % (test code = 713-8) 4.0 % BASO % (test code = 706-2) 1.1 % GRAN MAT x10^3(ANC) (test code = 7750664092) 5.71 10*3/uL 1.99-6.95 IMM GRAN x10^3 (test code = 0479415797) 0.04 10*3/uL 0.00-0.06 LYMPH x10^3 (test code = 731-0) 1.71 10*3/uL 1.09-3.23 MONO x10^3 (test code = 742-7) 0.68 10*3/uL 0.36-1.02 EOS x10^3 (test code = 711-2) 0.34 10*3/uL 0.06-0.53 BASO x10^3 (test code = 704-7) 0.09 10*3/uL 0.01-0.09 [facility] Metabolic Panel (NA, K, CL, CO2, Glucose, BUN, Creatinine, CA)2023-09-14 13:59:51* Test Item Value Reference Range Interpretation Comme nts NA (test code = 3039378838) 139 mmol/L 135-145 K (test code = 2557473102) 4.0 mmol/L 3.5-5.0 CL (test code = 4776087918) 105 mmol/L 98-108 CO2 TOTAL (test code = 7748077515) 27 mmol/L 23-31 AGAP (test code = 6266441189) 7 2-16 BUN (test code = 8747342861) 17 mg/dL 7-23 GLUCOSE (test code = 5941531109) 115 mg/dL 70-110 H CREATININE (test code = 2160-0) 0.83 mg/dL 0.60-1.25 CALCIUM (test code = 1152233032) 9.2 mg/dL 8.6-10.6 eGFR (test code = 76192-1) 98.3 mL/min/1.73m2 CKD-EPI eGFR (2020). Assuming creatinine has been stable day-to-day for at least three months, the eGFR indicates Category G1 (>= 90 mL/min/1.73 m2) Lab Interpretation (test code = 07716-7) Abnormal [facility] Metabolic Panel (NA, K, CL, CO2, Glucose, BUN, Creatinine, CA)2023-09-14 13:59:51* Test Item Value Reference Range Interpretation Comme nts NA (test code = 4282030196) 139 mmol/L 135-145 K (test code = 7716968781) 4.0 mmol/L 3.5-5.0 CL (test code = 4627084239) 105 mmol/L 98-108 CO2 TOTAL (test code = 8722984507) 27 mmol/L 23-31 AGAP (test code = 7409743326) 7 2-16 BUN (test code = 2078136268) 17 mg/dL 7-23 GLUCOSE (test code = 5772620593) 115 mg/dL 70-110 H CREATININE (test code = 2160-0) 0.83 mg/dL 0.60-1.25 CALCIUM (test code = 9725398598) 9.2 mg/dL 8.6-10.6 eGFR (test code = 52667-7) 98.3 mL/min/1.73m2 CKD-EPI eGFR (2020). Assuming creatinine has been stable day-to-day for at least three months, the eGFR indicates Category G1 (>= 90 mL/min/1.73 m2) Lab Interpretation (test code = 72003-6) [facility] Qbiftkd8768-38-06 13:41:00* Test Item Value Reference Range Interpretation Comme nts ABO & RH (test code = 20) O NEGATIVE IAT (test code = 1185) Negative [facility] Gruqpub1781-63-33 13:41:00* Test Item Value Reference Range Interpretation Comme nts ABO & RH (test code = 20) O NEGATIVE IAT (test code = 1185) Negative [facility],US,[id number] 13:47:00* Test Item Value Reference Range Interpretation Comme nts PVR (URINE VOLUME) (test code = 5193) 0 ml 0-100 [facility],US,[id number] 13:47:00* Test Item Value Reference Range Interpretation Comme nts PVR (URINE VOLUME) (test code = 5193) 0 ml 0-100 [facility] RAPID TESTING)2020-10-26 14:44:50* Test Item Value Reference Range Interpretation Comme nts SARS-CoV-2 Rapid ID NOW (test code = 36527-3) Positive Not Detected A OLGA (test code = OLGA) ID NOW COVID-19 As say is an isothermal nucleic acid amplification test intended for the qualitative detection of nucleic acid from SARS-CoV-2 viral RNA in nasopharyngeal (ELECTROMEDICAL SERVICE ENGINEER) specimens. It is used under Emergency Use Authorization (EUA) by FDA. The limit of detection (LOD) of the assay is 125 Genome Equivalents/mL. A positive result is indicative of the presence of SARS-CoV-2 RNA. ?Clinical correlation with patient history and other diagnostic information is necessary to determine patient infection status. A negative (Not Detected) result does not preclude SARS-CoV-2 infection. In patients with clinical symptoms and other tests that are consistent with SARS-CoV-2 infection, negative results should be treated as presumptive negative and a new specimen should be tested with alternative PCR molecular test. Invalid: Please collect a new specimen for repeat patient testing if clinically indicated. Lab Interpretation (test code = 12445-0) [facility]2020-10-26 14:44:50* Test Item Value Reference Range Interpretation Comme nts SARS-CoV-2 Rapid ID NOW (bernadine t code = 21572-7) Positive Not Detected A OLGA (test code = OLGA) Lab Interpretation (test cod e = 42714-2) Abnormal [facility] History and Physical Notes Date/Time Note Provider Source 2023-09-14 10:11:58 UROLOGY HISTORY AND PHYSICAL NOTE Date of Service: 09/14/2023 Chief Complaint: chronic urine retention History of Present Illness: Gardenia Melgoza is a 62 year old male with PMH as below , who presents with chronic urine retention , enlarged prostate on CIC for HoLEP. Finished recent course of oral abx, no hx of dysuria, hematuria , lower abdominal pain, or fever . Home Medications: Medications Prior to Admission Medication Sig Dispense Refill Last Dose tamsulosin 0.4 mg 24 hr capsule TAKE 1 CAPSULE BY MOUTH EVERY MORNING 90 capsule 1 09/13/2023 sulfamethoxazole-trimethoprim (BACTRIM DS) 800-160 mg per tablet Take 1 tablet by mouth in the morning and 1 tablet in the evening. 14 tablet 0 not taking albuterol 90 mcg/actuation inhaler Inhale 2 Puffs every 6 (six) hours as needed for Wheezing or Shortness of Breath. 8.5 g 0 Unknown albuterol 90 mcg/actuation inhaler Inhale 2 Puffs every 4 (four) hours as needed for Wheezing or Shortness of Breath. 8.5 g 0 Not Taking benzonatate 100 mg capsule Take 1 capsule by mouth 3 (three) times daily as needed for Cough. 14 capsule 0 Not Taking hkvvyltairpoxlw-ivzuoaomnnvknje-WF (BROMFED DM) 2-30-10 mg/5 mL syrup Take 5 mL by mouth 4 (four) times daily as needed for Congestion/Allergies. 473 mL 0 Not Taking acetaminophen-codeine 300-30 mg tablet Take 1 tablet by mouth every 4 (four) hours as needed for Pain (scale 4-6) (Cough). 20 tablet 0 Not Taking Histories: Past Medical History: Diagnosis Date BPH (benign prostatic hyperplasia) Mild hypercholesterolemia 06/26/2023 Past Surgical History: Procedure Laterality Date EYE SURGERY HERNIA REPAIR Family History Problem Relation Age of Onset Stroke Mother Cancer Father GI Brother Social History Socioeconomic History Marital status: Single Spouse name: Not on file Number of children: Not on file Years of education: Not on file Highest education level: Not on file Occupational History Not on file Tobacco Use Smoking status: Former Types: Cigarettes Passive exposure: Never Smokeless tobacco: Current Substance and Sexual Activity Alcohol use: Not Currently Drug use: Never Sexual activity: Not on file Other Topics Concern Not on file Social History Narrative Not on file Social Determinants of Health Financial Resource Strain: Not on file Food Insecurity: Not on file Transportation Needs: Not on file Physical Activity: Not on file Stress: Not on file Social Connections: Not on file Intimate Partner Violence: Not on file Housing Stability: Not on file Allergies: Allergies Allergen Reactions Cephalexin Hives Pcn [Penicillins] Hives Review of Systems: Constitutional: negative Eyes: negative Ears, nose, mouth, throat: negative Cardiovascular: negative Respiratory: negative Gastrointestinal: negative Genitourinary: (+) per HPI Musculoskeletal: negative Integumentary: negative Neurological: negative Psychiatric: negative Endocrine: negative Hematologic/Lymphatic: negative Allergic/Immunologic: negative, allergies listed above Physical Examination: Pulse 74, temperature 36.8 ?C (98.2 ?F), temperature source Temporal Artery, resp. rate 21, weight 117.9 kg (260 lb), SpO2 94%. Constitutional:no acute distress Eyes: normal external eye, conjunctiva and sclera normal Ears, nose, mouth, throat: normocephalic, moist mucous membranes Cardiovascular: regular rate and rhythm Respiratory: respirations unlabored on room air Musculoskeletal: no clubbing, cyanosis or edema Skin: no rashes Neurologic: no focal deficits Psychiatric: appropriate mood and affect Hematologic: no bruising Laboratory: Hemogram Recent Labs 07/19/23 1512 09/05/23 1053 09/14/23 0824 WBC 13.53* 9.83 8.57 HGB 14.7 15.1 15.5 HCT 46.1 47.0 48.7 PLT 320 288 297 Chemistry Recent Labs 07/19/23 1512 09/05/23 1053 09/14/23 0824 NA 135 138 139 K 4.4 4.3 4.0 CL 95* 103 105 TCO2 28 26 27 AGAP 12 9 7 BUN 17 10 17 GLU 114* 105 115* CREAT 1.00 0.77 0.83 CA 9.4 9.3 9.2 EGFR 84.6 100.6 98.3 Urinalysis There are no current results on file for these tests and/or test for the past 3 mos. Urine Culture Recent Labs 06/22/23 0915 06/30/23 1544 07/14/23 1056 07/25/23 1041 09/05/23 1053 09/11/23 0912 CUR >100,000 CFU/mL Pseudomonas aeruginosa* 10,000 - 100,000 CFU/mL mixed aerobic organisms - suggests endogenous microbial contamination >100,000 CFU/mL Escherichia coli* No aerobic growth (< 1000 CFU/mL) 10,000 CFU/mL Coagulase negative Staphylococcus* No aerobic growth (< 1000 CFU/mL) Liver Function Tests Recent Labs 07/19/23 1512 AST 47* ALT 48 ALKPHOS 143* BILIT 1.4* Coagulation Profile Recent Labs 07/19/23 1512 PTPAT 14.5* PTINR 1.2 APTTPAT 32 Arterial Blood Gas There are no current results on file for these tests and/or test for the past 3 mos. Radiology: I independently visualized the images noted below. MRI prostate Narrative & Impression EXAM: MULTIPARAMETRIC MR PROSTATE INDICATION:62 yearsMale Prostate cancer, assess treatment response elevated PSA baseline 10, recently 14 has indwelling cook & UTI. . PSA HISTORY: 13.2 in June 2023 PRIOR BIOPSY AND RESULTS: No prior prostate biopsy COMPARISON: CT pelvis 06/28/2023. TECHNIQUE: 1.5 Suzanne prostate MRI with dedicated body coil. SEQUENCES: Large field of view images of the pelvis were obtained: axial T2 weighted with fat suppression, 3D T2 weighted, and axial T1 weighted with fat suppression after contrast administration. Small field of view imaging of the prostate was performed with axial, sagittal, and coronal T2 weighted imaging. Diffusion weighted imaging (DWI) was performed with apparent diffusion coefficient (ADC) mapping. Axial T1 weighted imaging pre-contrast and dynamic contrast enhanced (DCE) imaging was performed following injection of 0.1 mmol/kg gadolinium IV. Offline post-processing of DCE data was performed on a dedicated [employer] workstation. The study was performed after patient voided to better evaluate for lower urinary obstruction. IMPRESSION 62-YEAR-OLD PATIENT WITH SEVERE TYPE II BPH AND 136 CC PROSTATE GLAND VOLUME WITH NORMAL PSA DENSITY 0.10. LARGE MEDIAN LOBE PROTRUDES 2.5 CM INTO THE BLADDER BASE. PERIPHERAL ZONE ATROPHY AND SCARRING IN THE LEFT PERIPHERAL ZONE BASE BUT NO FOCAL PROSTATE LESIONS SUSPICIOUS FOR PROSTATE CANCER. CHRONIC LOWER URINARY OBSTRUCTION WITH INDWELLING COOK CATHETER DECOMPRESSING THE BLADDER FINDINGS: * IMAGE QUALITY: good. * HEMORRHAGE: None * PROSTATE : Prostate volume is calculated as that of a prolate ellipsoid and measures 8.4 x 4.9 x 6.3 cm for an estimated volume of 135.9 mL. Therefore, the PSA density (based on recent PSA of 13.2 ng/dl) is 0.10 .The normal is less than 0.15 for PSA values greater than 10. . * PERIPHERAL ZONE: Diffuse atrophy due to central compression from BPH. Scarring and more focal atrophy in the left base. No focal lesions suspicious for prostate cancer in the peripheral zone, however. Normal enhancement pattern of the peripheral zones. * TRANSITION ZONE: Grade: Severe type II hypertrophy with heterogeneous T2-signal. Majority of BPH tissue is posterior to the urethra with a very large median lobe component extending at least 2.5 cm to the base of the bladder. Cook catheter is in place within the bladder. BLADDER: Decompressed by Cook catheter and otherwise negative. * LYMPH NODES: A few fatty reactive lymph nodes less than a centimeter noted in the external iliac regions and inguinal regions. * BONE MARROW: Normal signal. * OTHER: Minimal changes of diverticulosis.. Overall Assessment Categories (PI-RADS V2): Likelihood that a clinically significant cancer is present based on MRI parameters 1. Very low (clinically significant cancer is highly unlikely to be present) 2. Low (clinically significant cancer is unlikely to be present) 3. Intermediate (the presence of clinically significant cancer is equivocal) 4. High (clinically significant cancer is likely to be present) 5. 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 Possible adverse events recognized with TURP and ThuLVP include and not limited to ( pain, bleeding, infection, injury to surrounding structures, erectile dysfunction, urinary incontinence, retrograde ejaculation, stricture formation, inability to void/retention, prostatic regrowth, need for additional procedures). Trial of medical therapy Tamsulosin 0.4 mg at bedtime. Discussed usage and side-effects including dizziness, orthostatic hypotension ( drop in blood pressure) , falls, fatigue, nasal congestion and retrograde/ anejaculation ejaculation Robotic Laparoscopic Assisted Simple Prostatectomy for large glands ThuLVP has comparable outcomes when compared with the gold standard TURP, in addition to less risk of bleeding, catheterization time and need for hospitalization. HoLEP Patient opted for HoLEP : high chance of spontaneous voiding post op , risk of complications mainly damage to bladder ( perforation, , need to reconstruct). pain, bleeding, infection, injury to surrounding structures, need for prolonged catheter , failure to remove all prostate, need for additional procedures Patient may experience urgency, transient ADALBERTO/ UUI or THIEN, may need to use pads. if persistent may need further medical or surgical therapy ( rare) Plan: OR today for HoLEP Garry Cagle MD T [facility] Procedure Notes Date/Time Note Provider Source 2023-09-14 14:35:37 Full Operative Note Patient name: Gardenia Melgoza Number: [id number] Date of operation: 09/14/2023 Faculty surgeon: Garry Cagle Pre-operative diagnosis: BPH with LUTS, chronic urine retention on CIC, MRI prostate volume : 136 cc Post-operative diagnosis: trilobar obstructive prostate, high bladder neck ++, very vascular Operation performed: Transurethral Laser Enucleation of the Prostate (CPT - 73454) Findings: Normal urethra and bladder mucosa. No lesions or masses were seen. The prostate appeared enlarged trilobar . Clear efflux drained from both ureteral orifices. The bladder had increased capacity, debris , trabeculation , small tics or stones. High bladder neck and very vascular prostate ++, significant time to achieve hemostasis Due to large size and vascularity +++ with limited visibility , enculated larger left lobe and median lobe, both U.O's preserved with very wide bladder neck and prostatic fossa Enculation time : 124 min Hemostasis : 40 mins Morecellation : 16 mins Prostate chips : 50 g The patient tolerated the procedure well. There were no complications in this procedure. The patient was taken to the OR where a timeout was performed amongst all operative staff. GETA was administered per anesthesiology and the patient was given Ancef and Gent as a migdalia-procedural antibiotic. The patient was then positioned in dorsal lithotomy position and prepped/draped in the usual sterile fashion. The meatus was initially calibrated from 18 to 30 Fr sequentially with [place] urethral sounds. A resectoscope with a visual obturator was then advanced per urethra into the bladder and the bladder was emptied. A laser bridge was then introduced and a 550 micron Holmium laser was introduced. The prostate was noted to be large and tri-lobar in appearance. No suspicious lesions or masses were noted within the bladder. Beginning at the level of the verumontanum, the prostate was systematically enucleated. Enucleation was initiated posteriorly near the apex and continued laterally before advancing the enucleation anteriorly. After the anterior enucleation plane was created, the bladder was entered and the bladder neck was incised bilaterally until the anterior and posterior enucleation planes were join. The remaining posterior attachments were then then incised until the prostatic adenoma had been fully enucleated of the left lateral lobe and median lovbe. The prostatic adenoma was then advanced into the bladder lumen and a transurethral morcellator was introduced. The prostatic adenoma was fully morcellated and evacuated from the bladder, limited visibility , used bedside US to confirm residual adenoma, thorough irrigation improved visibility and morcellation completed safely with intact bladder wall and U.O's at the end of the case Final cystoscopy demonstrated no evidence of residual adenoma within the bladder, residual right lateral lobe prostatic fossa. Hemostasis was achieved with the laser fiber. All instrumentation was then removed and a 22 Fr 3-way catheter was advanced per urethra into the bladder with 50 cc of sterile water in the catheter balloon. CBI was initiated with pink output. This concluded the procedure, there were no complications. The patient was safely extubated and transferred to PACU in stable condition. Complications: none Estimated blood loss: 300 mL Specimens: prostate chips Drains: as above Patient's Condition: stable to PACU Garry Cagle MD T [facility] Notes Date/Time Note Provider Source 2024-01-16 10:20:14 Patient notified of results/recommendations, understanding was verbalized via teach back. Preston RN [facility] 2024-01-15 15:11:45 Reassuring results of FABRICE, it seems EO resolved with oral antibiotics and I recommend observation for hydrocele and varicocele RTC as scheduled [facility] 2024-01-15 14:44:37 Patient notified of results/recommendations, understanding was verbalized via teach back. Patient requesting ultrasound results. Will route to provider for review. Preston RN [facility] 2024-01-15 14:31:03 Attempted to contact patient with no answer, Voicemail left at this time with clinic phone number and instructed patient to return call. Preston RN [facility] 2024-01-13 11:10:49 UTI Oral Macrobid 7 days, stop levofloxacin course [facility] 2024-01-10 09:58:03 Patient contacted and scheduled at this time. Preston RN [facility] 2024-01-10 09:27:34 Offer RTC today [facility] 2024-01-10 08:28:36 Spoke with patient, states he has left testicle swelling and blood in urine that started yesterday. Denies dysuria, foul odor, fever, difficulty with urination. States urine is yellow in color when he starts to urinate then he notices the blood. Admits to pain when sitting or touching the area. States its "not that bad". Patient notified I would route concerns to provider for recommendations. Instructed to report to ER for severe pain or increasing hematuria. Patient verbalized understanding. Preston RN [facility] 2024-01-10 08:22:55 Patient called in stating that he his seeing blood when he urinates and that his left testicle is swollen. Busby [facility] 2023-10-17 11:13:03 Work release sent via [employer]. Radha Long MA [facility] 2023-10-11 12:26:58 He can be released back to work [facility] 2023-10-11 11:39:14 Gardenia Melgoza is a 62 year old male Pt is calling back needing to be released back to work. Please call and confirm receipt of message. Ning Fleming [facility] 2023-10-02 10:20:45 Gardenia Melgoza is a 62 year old male Pt is calling in asking for an update on his pw. Please call pt Thank you Leighann Pradhan [facility] 2023-09-28 10:34:43 Gardenia Melgoza is a 62 year old male patient calling for a release to return to work, returning 10/02/23. Please call [phone] Abigail Stokes [facility] 2023-09-18 15:01:28 Patient examined by Emerita Mcleod RN at nurse visit. Layne Preston RN [facility] 2023-09-18 11:44:33 Patient experiencing sweat and feeling unwell after nurse visit. Please advise. Thuy Andrew [facility] 2023-09-06 14:32:52 Ucx possible contamination Allergic to penicillin Oral abx sent 5 days Repeat Ucx 09/11/2023 ( order placed) T [facility] 2023-09-05 10:45:00 Images from the original note were not included. Venipuncture collection performed by clean technique on the right anticubitus. Total of 1 attempts were made. Slight pressure and a bandage/dressing were applied to the site(s). The patient experienced no complications. The following specimens were processed according to instructions and sent to [facility] laboratories per lab order on 09/05/2023: LT BLUE SST 1 RED LAV 2 PPT DK GREEN (LiHep) DK GREEN (SodH) LOMAX DK BLUE (K2) DK BLUE (S) ACD Blood Culture NIPT/NTD Patient has been identified by and name and was provided with cup, antiseptic towelette, and clean catch instructions. 1 urine specimen(s) sent. Unpreserved Urine Culture 1 Aptima tube Other urine T [facility] 2023-09-05 09:36:57 Called patient to remid him to come in complete labs and UC today. Patient says he will come in. Provided number for O for financial questions. T [facility] 2023-08-23 17:02:29 Images from the original note were not included. Your procedure is at [facility] on 09/14/23. The address is [address] [place] [address], [id number]. [facility] ([facility]] nursing staff will call you the workday before your procedure to let you know what time to arrive.On the day of your procedure, please go inside that door and check in at the desk. Please note: You may not travel home alone and that includes in a taxi or by bus. We must speak to your Responsible Adult (who will be picking you up) the morning of your procedure, before the start of your procedure. This person must be an adult over the age of 18 years of age. Do not eat any solid food after midnight the night before surgery. You may have sips of clear liquids such as water, gatorade, and sprite up until two hours before your scheduled procedure. You may take your medications with a sip of water as directed by physician. Anticoagulants will be per physician guidance. Medication Note(s)/Instructions:n/a Pending screening, we may test for COVID. If a patient tests positive, their cases are cancelled and/or rescheduled. COVID SCREENING NOTE: Denies COVID symptoms, no testing required. Additional requests, questions, concerns:CB number and availability provided. Patient is aware of labs and UC and will complete prior to surgery. Patient verbalized understanding of pre-op instructions and voiced no further questions at this time. [facility] 2023-08-04 10:49:20 Thank you very much, I agree [facility] 2023-08-04 10:21:31 Patient in clinic today due to leaking indwelling catheter. Patient states he attempted CIC at [facility] location but was unsuccessful due to inability to use strait tip catheter. This RN re-reviewed CIC education with the patient today and benefits of using CIC now until his scheduled surgery. Patient agreeable to re-attempt CIC. Filled bladder through indwelling 16Fr catheter with 120mls of sterile water then removed indwelling catheter. Patient was successful providing CIC to himself with a 16Fr coude catheter with a plastic sleeve, patient was able to drain 200mls of pink clear urine. Patient unable to use strait catheter or catheter with grippy due to lack of manual dexterity to remain sterile. Reviewed orders with patient that he is to provide self cathing BID. Reviewed s/s of retention and infection and when to present to the ER. Advised patient that some blood in urine is normal after self catheterization and that bleeding should resolve within 3 days, if bleeding does not improve or continues to worsen patient should present to the ER. Patient given enough supplies to provide CIC to himself through Monday08/08/23 when patient is to return to clinic to check and see how he is doing with CIC as he feels apprehensive about doing it for the next few weeks until his surgery. Patient verbalizes he is not sure he can tolerate the pain he experience when catheter passes by his prostate for over a month. Provided patient with reassurance that after a few insertions the pain should become more bearable. Patient verbalized understanding to all instruction. Emerita Guillory RN [facility] 2023-08-02 17:55:14 Its up to the patient, he can RTC NV just for CIC to remove the catheter and train bladder prior to surgery [facility] 2023-08-01 12:55:37 I called patient and explained MRI results which showed enlarged trilobar prostate with no MARIANNE and normal PSAD I counseled patient about options for treating BPH and natural history if not treated ( bladder atony, voiding dysfunction, renal failure, stones recurrent infection, and need for detention catheter) CIC, surgical options: TURP, ThuLVP to alleviate the obstruction and attempt improve LUTS and 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 Possible adverse events recognized with TURP and ThuLVP include and not limited to ( pain, bleeding, infection, injury to surrounding structures, erectile dysfunction, urinary incontinence, retrograde ejaculation, stricture formation, inability to void/retention, prostatic regrowth, need for additional procedures). Trial of medical therapy Tamsulosin 0.4 mg at bedtime. Discussed usage and side-effects including dizziness, orthostatic hypotension ( drop in blood pressure) , falls, fatigue, nasal congestion and retrograde/ anejaculation ejaculation Robotic Laparoscopic Assisted Simple Prostatectomy for large glands ThuLVP has comparable outcomes when compared with the gold standard TURP, in addition to less risk of bleeding, catheterization time and need for hospitalization. HoLEP Patient opted for HoLEP : high chance of spontaneous voiding post op , risk of complications mainly damage to bladder ( perforation, , need to reconstruct). pain, bleeding, infection, injury to surrounding structures, need for prolonged catheter , failure to remove all prostate, need for additional procedures Patient may experience urgency, transient ADALBERTO/ UUI or THIEN, if persistent may need further medical or surgical therapy ( rare) Patient opted for CIC 16 Fr straight tip catheter BID for chronic urine retention Plan RTC NV for CIC teaching [facility] [place] , ucx and labs with pre op instructions 10 days pre op All questions answered , patient voiced understanding Garry Cagle MD [facility] 2023-07-28 08:26:54 Cleared for surgery Please refer to the 07/21/2023office visit. Radha Long MA [facility] 2023-07-21 09:22:14 WBC elevated likely r/t UTI, please repeat in 5 days Written by ROMAN Lacey on 07/21/2023 8:06 AM CDT Seen by patient Gardenia Melgoza on 07/21/2023 8:17 AM Lilo Brown LVN [facility] 2023-07-21 08:06:57 Repeat cbc in 5 days [facility] 2023-07-19 15:00:00 Images from the original note were not included. Venipuncture collection performed by clean technique on the right anticubitus. Total of 1 attempts were made. Slight pressure and a bandage/dressing were applied to the site(s). The patient experienced no complications. The following specimens were processed according to instructions and sent to [facility] laboratories per lab order on 07/19/2023 : LT BLUE 1 SST 1 RED LAV 2 PPT DK GREEN (LiHep) DK GREEN (SodH) LOMAX DK BLUE (K2) DK BLUE (S) ACD Blood Culture NIPT/NTD [facility] 2023-07-18 15:37:58 The following patient is scheduled with Garry Cagle at [facility] Surgery Department. The procedure is currently scheduled on 08/03/23 and requires Cardiac clearance prior to the procedure. Please submit the following: Note indicating Cardiac clearance risk level 2. Most recent office note date 3. Recent tests (if not accessible in [facility]): Labs, EKG, Echo, etc 4. Information on implantable devices (pacemaker, AICD, last interrogation, device type with response to magnet and most recent EP report) 5. Perioperative recommendations / 6. Optimization for surgery, any needs for cardiac testing prior to having surgery Thank you, Layne Preston RN Layne Preston RN [facility] 2023-07-18 15:37:24 Patient seen in clinic 07/18/23 and discussed. Layne Preston RN [facility] 2023-07-17 09:15:46 Garry Cagle MD 07/16/2023 9:18 PM CDT Colonized urine secondary to indwelling cook for chronic urine retention Please OB 07/18/2023 or 07/19/2023 to discuss surgery If surgery is scheduled, exchange catheter , repeat Urine culture, oral antibiotics for 5 days pre op Recent CT prostate size around 80 cc, HoLEP would be a reasonable option to help address chronic urine retention and post op spontaneous voiding Spoke with patient, and Name verified, patient verbalizes and understand results. Scheduled 07/18/2023. Radha Long MA [facility] 2023-07-13 09:30:25 Gardenia Melgoza is a 62 year old male Patient is calling states he has not heard anything regarding scheduling for surgery. Please contact pt. [phone] (home) [address] [facility] 2023-07-04 13:30:00 Images from the original note were not included. Venipuncture collection performed by clean technique on the right anticubitus. Total of 1 attempts were made. Slight pressure and a bandage/dressing were applied to the site(s). The patient experienced no complications. The following specimens were processed according to instructions and sent to [facility] laboratories per lab order on 07/04/2023 : LT BLUE SST 1 RED LAV PPT DK GREEN (LiHep) DK GREEN (SodH) LOMAX DK BLUE (K2) DK BLUE (S) ACD Blood Culture NIPT/NTD [facility] 2023-06-26 08:19:11 Patient notified of results/recommendations, understanding was verbalized via teach back. Patient state she started ABT due to fever and general malaise. Patient states he is feeling better today and without fever. Patient instructed to complete abt and repeat urine culture 06/29. For cysto on 07/04/23. Layne Preston RN [facility] 2023-06-24 19:50:15 Colonized urine with indwelling catheter Plan Mychart message sent Oral abx 06/30/2023 Return to clinic as scheduled 07/01/2023 for cystoscopy [facility] 2023-05-27 09:07:31 PT D/C home. GCS15, VS stable, no ataxia noted. Given one prescription and D/C paperwork. S/S relieved at this time. Pt ambulatory at time of discharge. Pt educated on care of cook, med usage, follow up care with urologist-or to come back to ER for removal on Monday per provider instruction, s/s worsening condition. Pt verbalized understanding. [facility] 2023-05-27 07:45:03 Last urination before bed last night ~2200. Woke up at 0200 unable to urinate. Has urge but nothing comes out. ELT Sophie Gavin RN [facility] 2023-05-27 07:36:00 [facility] Emergency Department Note Patient Name: Gardenia Melgoza Date of : 1960 62 year old male Treatment Room: Room/bed info not found Primary Care Physician: PATIENT DOES NOT HAVE A PCP Patient Escorted by: Self [9] Mode of Arrival: Personal means [1] EMS Treatment Prior to ED Arrival: Travel and Exposure Screening: Symptoms Does patient have any of these symptoms?: (not recorded) Exposure Screening Has patient had contact with someone with a communicable disease in the last month?: (not recorded) Diseases exposed to:: (not recorded) Is Patient ?: (not recorded) Exposure Date: (not recorded) Chief Complaint: No chief complaint on file. History of Present Illness: Pt seen in osh last week for muscle spasm, given flexeril, pt states taking flexeril at night, went to bed last night and unable to urinate, States normal for him to urinate 3 times per night States no hx of prostate issues Denies fever chills denies other medical issues Denies numbness or tingling He had to defecate so got up and went to bathroom now back States he normally gets up to urinate 2-3 times but it is very little amount, he has to sit to urinate Past Medical History/Immunizations: History reviewed. No pertinent past medical history. Allergies: Allergies Allergen Reactions Pcn [Penicillins] Hives Past Social History: Substance & Sexual Activity No substance use or sexual activity history on file. Past Surgical History: History reviewed. No pertinent surgical history. Review of Systems: Review of Systems Constitutional: Negative for appetite change and fatigue. Cardiovascular: Negative for chest pain, palpitations and leg swelling. Gastrointestinal: Positive for abdominal pain and vomiting. Negative for diarrhea, nausea and rectal pain. Genitourinary: Positive for difficulty urinating. All other systems reviewed and are negative. Physical Exam: ED Triage Vitals Weight Actual or estimated Height BP Pulse Resp Temp Temp src SpO2 Measured on Physical Exam Vitals and nursing note reviewed. Constitutional: Appearance: He is normal weight. HENT: Head: Normocephalic. Right Ear: External ear normal. Left Ear: External ear normal. Nose: Nose normal. Mouth/Throat: Mouth: Mucous membranes are moist. Eyes: Extraocular Movements: Extraocular movements intact. Pupils: Pupils are equal, round, and reactive to light. Cardiovascular: Rate and Rhythm: Normal rate and regular rhythm. Pulmonary: Effort: Pulmonary effort is normal. Abdominal: General: Abdomen is flat. Palpations: Abdomen is soft. There is no mass. Hernia: No hernia is present. Musculoskeletal: General: No swelling. Normal range of motion. Cervical back: Normal range of motion. Skin: Capillary Refill: Capillary refill takes less than 2 seconds. Neurological: General: No focal deficit present. Mental Status: He is alert and oriented to person, place, and time. Radiology: No orders to display Lab Results: Lab Results - No data to display EKG: If EKG completed, see Procedure Note. Orders and Treatments: No orders of the defined types were placed in this encounter. No orders of the defined types were placed in this encounter. First Provider Eval: ED Events Date/Time Event User Comments 05/27/23 07 Medical Screening Begins CHARLENE BOBBY MD T -- 05/27/23 07 First Provider Evaluation CHARLENE BOBBY MD -- ED COURSE Diagnosis/Impression as of 05/27/23 0805 Urine retention Procedures: Procedures MDM: Medical Decision Making Pt seen in osh last week for muscle spasm, given flexeril, pt states taking flexeril at night, went to bed last night and unable to urinate, States normal for him to urinate 3 times per night States no hx of prostate issues Denies fever chills denies other medical issues Denies numbness or tingling He had to defecate so got up and went to bathroom now back States he normally gets up to urinate 2-3 times but it is very little amount, he has to sit to urinate Ddx urine retention uti, bph medication reaction Pt has no cauda equina sx, has sensation has no pain, states he is feeling better after the cook He describes some BPH sx, will start flomax, leave cook in and have return here or follow upwith urology Pt feeling better, tolerated po Problems Addressed: Urine retention: Details: Cook placed Flomax started Referral to urology made Amount and/or Complexity of Data Reviewed Labs: ordered. Details: Recent Results (from the past 24 hour(s)) -Urinalysis: Collection Time: 05/27/23 8:09 AM Result Value Ref Range APPEARANCE Clear Clear COLOR Yellow Yellow PH 5.0 4.8 - 8.0 SP GRAVITY 1.015 1.003 - 1.030 GLU U QUAL Normal Normal BLOOD 2+ (A) Negative KETONES Negative Negative PROTEIN Negative Negative UROBILIN Normal Normal BILIRUBIN Negative Negative NITRITE Negative Negative LEUK ROSANNA Negative Negative RBC/HPF 17 (H) 0 - 3 HPF WBC/HPF 1 0 - 5 HPF BACTERIA Negative Negative MUCOUS Slight (A) Negative LPF Risk Prescription drug management. Flowsheet Documentation: Scoring Tools: No data recorded Disposition/Condition: ED Disposition None Discharge Medications: Patient's Medications START taking these medications No medications on file CONTINUE taking these medications which have NOT CHANGED ACETAMINOPHEN-CODEINE 300-30 MG TABLET Take 1 tablet by mouth every 4 (four) hours as needed for Pain (scale 4-6) (Cough). ALBUTEROL 90 MCG/ACTUATION INHALER Inhale 2 Puffs every 4 (four) hours as needed for Wheezing or Shortness of Breath. BENZONATATE 100 MG CAPSULE Take 1 capsule by mouth 3 (three) times daily as needed for Cough. BROMPHENIRAMINE-PSEUDOEPHEDR INE-DM (BROMFED DM) 2-30-10 MG/5 ML SYRUP Take 5 mL by mouth 4 (four) times daily as needed for Congestion/Allergies. CEPHALEXIN (KEFLEX) 500 MG CAPSULE Take 1 capsule by mouth 3 (three) times daily. START taking Modified Medications as Prescribed No medications on file STOP taking these medications No medications on file Follow-up: Electronically signed by: Charlene Bobby MD 05/27/23900 T [facility]
[2024-11-15] MEDS ORDERED: NA CHLORIDE 0.9% 1,000 ML ONE (11:47)
[2024-11-15 12:04] LABS: Absolute Lymphocytes (CBC) 1.9 K/uL (0.7-4.9); Hematocrit 49.2 % (39.6-49.0); Hemoglobin 16.0 g/dL (13.6-17.9); MCH 27.8 pg (27.0-35.0); MCHC 32.6 g/dL (32.0-36.0); MCV 85.4 fL (80-100); MPV 8.3 fL (7.6-11.3); Nucleated RBC Absolute Count 0.0 (0-0); Nucleated Red Blood Cells % 0.0 % (0-0); RBC Red Blood Cell Count 5.76 M/uL (4.33-5.43); White Blood Count 13.70 thou/uL (4.3-10.9)
--- NOTE | 2024-11-15 12:19 | RAD REPORT ---
EXAMINATION: ONE VIEW CHEST XR CLINICAL INDICATION: Male, 64 years old.,CHEST PAIN TECHNIQUE: Frontal chest projection is submitted. Examination is limited by patient positioning and t echnique. COMPARISON: 03/11/2013 FINDINGS: The lungs are well inflated and clear. No pneumothorax or sizable effusion. The heart is normal in s ize. Mediastinal contours are unremarkable. IMPRESSION: No acute intrathoracic abnormalities.
[2024-11-15 12:21] LABS: Influenza A Ag Negative; Influenza B Ag Negative; SARS-CoV-2 Antigen Rapid Res Negative (Negative)
[2024-11-15 12:24] LABS: Anion Gap 8.6 mEq/L (5.0-15.0); BUN Blood Urea Nitrogen 18.0 mg/dL (7-18); Glucose Level 127.0 mg/dL (74-106); Potassium 3.6 mEq/L (3.5-5.1); Troponin High Sensitivity 4.3 pg/mL (<58.9)
--- NOTE | 2024-11-15 15:33 | ER ---
Nurse's Notes [facility] Name: Kevin Melgoza Age: 64 yrs Sex: Male : 1960 Arrival Date: 11/15/2024 Time: 11:03 Bed 8 Private MD: Diagnosis: Impacted cerumen, right ear;Cough Presentation: 11/15 11:28 Chief complaint: Patient states: Fatigue started Monday. Cough with yellow sputum, ll1 hot/sweaty, SOB with exertion since. No N/V/D. Coronavirus screen: Client denies travel out of the [place] in the last 14 days. cough unrelated to allergies. Ebola Screen: Patient denies travel to an Ebola-affected area in the 21 days before illness onset. Initial Sepsis Screen: Does the patient meet any 2 criteria? No. Patient's initial sepsis screen is negative. Does the patient have a suspected source of infection? No. Patient's initial sepsis screen is negative. Risk Assessment: Do you want to hurt yourself or someone else? Patient reports no desire to harm self or others. Onset of symptoms was November 11, 2024. 11:28 Method Of Arrival: Ambulatory ll1 11:28 Acuity: ALYSON 3 ll1 Historical: - Allergies: 11:17 PENICILLINS; ll1 - Immunization history:: Adult Immunizations up to date. - Infectious Disease History:: Denies. - Social history:: Smoking status: Patient reports use of chewing tobacco. Patient uses street drugs, marijuana. Screenin:[facility] ED Fall Risk Assessment (Adult) History of falling in the last 3 months, af3 including since admission No falls in past 3 months (0 pts) Confusion or Disorientation No (0 pts) Intoxicated or Sedated No (0 pts) Impaired Gait No (0 pts) Mobility Assist Device Used No (0 pt) Altered Elimination No (0 pt) Score/Fall Risk Level 0 - 2 = Low Risk Oriented to surroundings, Maintained a safe environment, Educated pt \T\ family on fall prevention, incl call for assistance when getting out of bed. Abuse screen: Denies threats or abuse. Denies injuries from another. Nutritional screening: No deficits noted. Tuberculosis screening: No symptoms or risk factors identified. Assessment: 11:59 General: Appears in no apparent distress. comfortable, well groomed, well developed, af3 Behavior is calm, cooperative, appropriate for age. Pain: Denies pain. Neuro: Level of Consciousness is awake, alert, obeys commands, Oriented to person, place, time, situation, Appropriate for age. Cardiovascular: Patient's skin is warm and dry. Rhythm is sinus rhythm. Respiratory: Airway is patent Respiratory effort is even, unlabored, Respiratory pattern is regular, symmetrical. 13:26 Reassessment: Patient appears in no apparent distress at this time. No changes from aa5 previously documented assessment. Patient and/or family updated on plan of care and expected duration. Pain level reassessed. 14:26 Reassessment: Patient appears in no apparent distress at this time. No changes from af3 previously documented assessment. Patient and/or family updated on plan of care and expected duration. Pain level reassessed. 15:26 Reassessment: Patient appears in no apparent distress at this time. No changes from af3 previously documented assessment. Patient and/or family updated on plan of care and expected duration. Pain level reassessed. Vital Signs: 11:28 BP 134 / 91; Pulse 90; Resp 17; Temp 97.5; Pulse Ox 97% ; Weight 113.4 kg; Height 5 ft. ll1 11 in. ; 12:00 BP 136 / 85; Pulse 91; Resp 18; Pulse Ox 95% on R/A; af3 13:27 BP 134 / 84; Pulse 72; Resp 18; Pulse Ox 99% on R/A; aa5 15:51 BP 132 / 108; Pulse 70; Resp 18; Pulse Ox 98% on R/A; af3 11:28 Body Mass Index 34.87 (113.40 kg, 180.34 cm) ll1 ED Course: 11:09 Patient arrived in ED. cj3 11:17 Arm band placed on. ll1 11:19 [facility] Madd[facility] FNP-C [facility]. dr5 11:19 Viraj Bartlett DO is Attending Physician. dr5 11:31 Triage completed. ll1 11:41 Marry Crenshaw, JIMBO is Primary Nurse. af3 11:54 Initial lab(s) drawn, by woven label designer, sent to lab. Inserted saline lock: 18 gauge in right ts3 antecubital area, using aseptic technique. Blood collected. Flushed with 10 mL NS. 11:54 COVID-19 Ag + Flu A+B Ag Sent. ts3 12:01 No provider procedures requiring assistance completed. af3 12:02 Patient has correct armband on for positive identification. Bed in low position. Call af3 light in reach. Provided Education on: call light use . 12:11 XRAY Chest (1 view) In Process Unspecified. EDMS 15:53 IV discontinued, intact, bleeding controlled, No redness/swelling at site. Pressure af3 dressing applied. Administered Medications: 11:58 Drug: NS 0.9% IV 1000 ml IV at 1000 ml once; to be given as a bolus over 60 minutes ap3 Route: IV; Rate: 1000 ml; Site: right antecubital; 15:53 Follow up: Response: No adverse reaction; IV Status: Completed infusion; IV Intake: af3 1000ml Medication: 12:02 VIS not applicable for this client. af3 Intake: 15:53 IV: 1000ml; Total: 1000ml. af3 Outcome: 15:32 Discharge ordered by MD. dr5 15:52 Discharged to home ambulatory, af3 15:52 Condition: stable 15:52 Discharge instructions given to patient, Instructed on discharge instructions, follow up and referral plans. medication usage, Demonstrated understanding of instructions, follow-up care, medications, Prescriptions given X 2, 15:54 Patient left the ED. af3 Signatures: Dispatcher [employer] EDMS Cynthia Rendon, RN RN aa5 Jazzy Mcmillan RN RN ap3 Casimiro Negron RN RN ll1 Marry Crenshaw RN RN af3 Adam Madden, DEVELOPMENT INTERN-C DEVELOPMENT INTERN-5 Radha Payton 3 Joyce Roque ts3
--- NOTE | 2024-11-15 15:33 | EDPHYS ---
Physician Documentation [facility] Name: Kvein Melgoza Age: 64 yrs Sex: Male : 1960 Arrival Date: 11/15/2024 Time: 11:03 Bed 8 Private MD: ED Physician Viraj Bartlett HPI: 11/15 11:48 This 64 yrs old Male presents to ER via Ambulatory with complaints of Doesn't dr5 Feel Right. 11:48 Onset: The symptoms/episode began/occurred 5 day(s) ago. Patient is a 64-year-old male dr5 with no past medical history coming in with cough, congestion, shortness of breath with exertion that started on Monday. Patient reports he has been attempting to use cough and cold medications with mild relief. Patient states that the cough sputum has changed in color from white and clear to yellow. Patient reports intermittent and subjective fevers at home. Patient denies chest pain, abdominal pain, nausea, vomiting, diarrhea.. Historical: - Allergies: 11:17 PENICILLINS; ll1 - Immunization history:: Adult Immunizations up to date. - Infectious Disease History:: Denies. - Social history:: Smoking status: Patient reports use of chewing tobacco. Patient uses street drugs, marijuana. ROS: 11:48 Constitutional: as per hpi dr5 Exam: 11:48 Constitutional: This is a well developed, well nourished patient who is awake, alert, dr5 and in no acute distress. Head/Face: Normocephalic, atraumatic. Eyes: Pupils equal round and reactive to light, extra-ocular motions intact. Lids and lashes normal. Conjunctiva and sclera are non-icteric and not injected. Cornea within normal limits. Periorbital areas with no swelling, redness, or edema. Neck: Trachea midline, no thyromegaly or masses palpated, and no cervical lymphadenopathy. Supple, full range of motion without nuchal rigidity, or vertebral point tenderness. No Meningismus. Chest/axilla: Normal chest wall appearance and motion. Nontender with no deformity. No lesions are appreciated. Cardiovascular: Regular rate and rhythm with a normal S1 and S2. Normal PMI, no JVD. No pulse deficits. Respiratory: Lungs have equal breath sounds bilaterally, clear to auscultation. No rales, rhonchi or wheezes noted. No increased work of breathing, no retractions or nasal flaring. Back: No spinal tenderness. No costovertebral tenderness. Full range of motion. Skin: Warm, dry with normal turgor. Normal color with no rashes, no lesions, and no evidence of cellulitis. MS/ Extremity: Pulses equal, no cyanosis. Neurovascular intact. Full, normal range of motion. Neuro: Awake and alert, GCS 15, oriented to person, place, time, and situation. Cranial nerves II-XII grossly intact. Motor strength 5/5 in all extremities. Sensory grossly intact. Cerebellar exam normal. Normal gait. Vital Signs: 11:28 BP 134 / 91; Pulse 90; Resp 17; Temp 97.5; Pulse Ox 97% ; Weight 113.4 kg; Height 5 ft. ll1 11 in. ; 12:00 BP 136 / 85; Pulse 91; Resp 18; Pulse Ox 95% on R/A; af3 13:27 BP 134 / 84; Pulse 72; Resp 18; Pulse Ox 99% on R/A; aa5 15:51 BP 132 / 108; Pulse 70; Resp 18; Pulse Ox 98% on R/A; af3 11:28 Body Mass Index 34.87 (113.40 kg, 180.34 cm) ll1 Procedures: 15:33 Ear irrigation: Route right ear with Normal Saline amount 500ml Patient tolerated well. dr5 MDM: 11:19 Medical Screening Exam initiated dr5 15:33 Differential diagnosis: viral Infection, bacterial infection, URI, Otitis media, otitis dr5 externa. Data reviewed: vital signs, nurses notes, lab test result(s), cardiac enzymes, troponin i, CBC, white blood cell count, hemoglobin, hematocrit, platelets, electrolytes, sodium, potassium, chloride, serum bicarbonate, BUN, creatinine, serum glucose, radiologic studies, plain films. Consideration of Admission/Observation Escalation of care including admission/observation considered. Escalation considered patient found of elevated troponin or pneumonia. I considered the following discharge prescriptions or medication management in the emergency department I discussed and recommended Over The Counter medications, Medications were administered in the Emergency Department. See MAR. Independent interpretation of the following test(s) in the Emergency Department X-Ray: My interpretation is Independent interpretation of x-ray does not reveal pneumonia. Care significantly affected by the following Social Determinants of Health: Poor access to healthcare and/or lack of insurance, Poor access to transportation, Problems related to employment. Counseling: I had a detailed discussion with the patient and/or guardian regarding the historical points, exam findings, and any diagnostic results supporting the discharge/admit diagnosis, the presence of at least one elevated blood pressure reading (>120/80) during this emergency department visit, lab results, radiology results, the need for outpatient follow up, for definitive care, a family practitioner, to return to the emergency department if symptoms worsen or persist or if there are any questions or concerns that arise at home. Special discussion: I discussed with the patient/guardian in detail that at this point there is no indication for admission to the hospital. It is understood, however, that if the symptoms persist or worsen the patient needs to return immediately for re-evaluation. Based on the history and exam findings, there is no indication for further emergent testing or inpatient evaluation. I discussed with the patient/guardian the need to see the primary care provider for further evaluation of the symptoms. ED course: Will give patient azithromycin and steroid Dosepak for symptoms. All question answered. Strict ER precautions given. Patient had right ear irrigated and cerumen impaction was removed resolved. Patient is feeling much better.. 11/15 11:32 Order name: Basic Metabolic Panel; Complete Time: 12: [facility] 11/15 11:32 Order name: CBC with Diff; Complete Time: [facility] 11/15 11:32 Order name: Troponin HS; Complete Time: [facility] 11/15 11:32 Order name: COVID-19 Ag + Flu A+B Ag; Complete Time: 12: [facility] 11/15 11:32 Order name: XRAY Chest (1 view); Complete Time: 12: [facility] 11/15 11:32 Order name: EKG; Complete Time: 11: [facility] 11/15 11:32 Order name: Cardiac monitoring; Complete Time: [facility] 11/15 11:32 Order name: EKG - Nurse/Tech; Complete Time: [facility] 11/15 11:32 Order name: IV Saline Lock; Complete Time: [facility] 11/15 11:32 Order name: Labs collected and sent; Complete Time: [facility] 11/15 11:32 Order name: O2 Per Protocol; Complete Time: [facility] 11/15 11:32 Order name: O2 Sat Monitoring; Complete Time: [facility] 11/15 14:22 Order name: Dre. Order: Right ear irrigation; Complete Time: 14:52 dr5 EC:49 Rate is 85 beats/min. Rhythm is regular. QRS [place] is Normal. [place] interval is normal at dr5 146 msec. QRS interval is normal at 92 msec. QT interval is normal at 378 msec. Clinical impression: Normal ECG and No evidence of ischemia. Administered Medications: 11:58 Drug: NS 0.9% IV 1000 ml IV at 1000 ml once; to be given as a bolus over 60 minutes ap3 Route: IV; Rate: 1000 ml; Site: right antecubital; 15:53 Follow up: Response: No adverse reaction; IV Status: Completed infusion; IV Intake: af3 1000ml Disposition: 14:31 I was immediately available on-site in the Emergency Department for consultation in the ky3 care of the patient. Disposition Summary: 11/15/24 15:32 Discharge Ordered Notes: Location: Home dr5 Condition: Stable dr5 Diagnosis - Impacted cerumen, right ear dr5 - Cough dr5 Followup: dr5 - With: Emergency Department - When: As needed - Reason: Worsening of condition Followup: dr5 - With: Private Physician - When: 1 - 2 days - Reason: Recheck today's complaints, Continuance of care, Re-evaluation by your physician Discharge Instructions: - Discharge Summary Sheet dr5 - Earwax Buildup, Adult dr5 - Cough, Adult, [id number] dr5 Forms: - Medication Reconciliation Form dr5 - Antibiotic Education dr5 - Patient Portal Instructions dr5 - Leadership Thank You Letter dr5 Prescriptions: - Zithromax Z-Sherman 250 mg Oral Tablet - take 1 tablet ORAL route as directed for 5 days Day 1 - take two (2) tablets dr5 one time. Day 2, 3, 4 , 5 take one (1) tablet once daily.; 6 tablet; Refills: 0, Product Selection Permitted - Medrol (Sherman) 4 mg Oral Tablets, Dose Pack - take 1 tablet ORAL route as directed - follow package instructions; 1 packet; dr5 Refills: 0, Product Selection Permitted Signatures: Dispatcher [employer] Jazzy Tang RN RN ap3 Casimiro Negron RN RN ll1 Viraj Bartlett, DO ms3 Marry Crenshaw RN RN af3 Adam Madden, ROMAN-C DIRECTOR OF MARKETING-Cdr5
[2024-11-15 16:12] VITALS: TEMP 97.5
[2024-11-15 16:17] VITALS: BP 132/108; O2SAT 98
== END 2024-11-15 15:54 | disposition home or self-care (01) ==
LOC: ER 11:03
PROC: 3E1B78Z Irrigation of Ear using Irrigating Substance, Via Natural or Artificial Opening (ICD-10-PCS; principal; 2024-11-15)
DX: H61.21 Impacted cerumen, right ear (principal); R05.9 Cough, unspecified; Z11.52 Encounter for screening for COVID-19
CPT/HCPCS: 96361; 93005; 85025; 80048; 36415; 84484; 71045; 96360; 99284; 87428; 69209; J7030